=== PATIENT | female | born 1945 | race Caucasian/White ===

== ENCOUNTER 2018-11-16 06:27 | Day surgery (SDC) | payer OTHER ==
[2018-11-14 11:56] LABS: Absolute Lymphocytes (CBC) 1.7 K/uL (0.7-4.9); Basophils % 0.9 % (0-1.3); Hematocrit 43.8 % (36.0-45.0); Lymphocytes % 26.7 % (15.3-44.8); MPV 8.5 fL (7.6-11.3); RBC Red Blood Cell Count 4.78 M/uL (3.86-4.86)
[2018-11-14 12:09] LABS: Potassium 4.4 mmol/L (3.5-5.1)
--- OUTSIDE RECORDS SUMMARY | 2018-11-16 06:32 | XMS REPORT ---
:1945 Author Organization [employer] Care Team Providers Name Role Phone LopezTab Provider Role Unavailable Allergies, Adverse Reactions, Alerts Substance Reaction Event Type Bactrim Info Not Available Drug Allergy Problems Problem Type Condition Code Onset Dates Condition Status Assessment Pain, joint, shoulder, right M25.511 Active Problem Primary osteoarthritis of right M19.011 Active shoulder Assessment Primary osteoarthritis of right M19.011 Active shoulder Assessment Impingement syndrome of right M75.41 Active shoulder Assessment Sprain of right rotator cuff S43.421A Active capsule, initial encounter Medications Medication Code Code Instructions Start End Status Dosage System Date Date Plavix [facility] 58166968770 75 MG Orally October Active 1 tablet Once a day 2018 Metformin HCl [facility] 47720773796 1000 MG Oral Active TAKE 1 TABLET BY MOUTH TWICE A DAY Fenofibrate [facility] 52495805369 145 MG Oral Active TAKE 1 TABLET BY MOUTH EVERY DAY Losartan [facility] 40069939789 50 MG Oral Active TAKE 1 TABLET BY Potassium MOUTH EVERY DAY Escitalopram [facility] 10246086815 20 MG Oral Active TAKE 1 TABLET BY Oxalate MOUTH EVERY DAY. Jardiance [facility] 75427743883 25 MG Oral Active TAKE 1 TABLET BY MOUTH EVERY DAY Levothyroxine [facility] 13887112085 125 MCG Oral Active TAKE 1 TABLET BY Sodium MOUTH EVERY DAY Lansoprazole [facility] 30142534686 30 MG Oral Active TAKE 1 CAPSULE BY MOUTH EVERY DAY Victoza [facility] 07754006285 18 MG/3ML Active SUBCUTANEOUS Subcutaneous INJECT UNDER THE SKIN 1.8MG DAILY DIRECTED Aspir-81 ND 0 October Active not defined 2018 Metoprolol [facility] 31912310565 25 MG Oral Active TAKE 1 TABLET BY Tartrate MOUTH TWICE A DAY Atorvastatin [facility] 08366335202 40 MG Oral Active TAKE 1 TABLET BY Calcium MOUTH EVERY DAY Tresiba [facility] 94564550245 200 units/mL October Active As Directed Subcuteneous 2018 NovoLog [facility] 50497487854 100 UNIT/ML Active INJECTABLE Subcutaneous SUBCUTANEOUSLY 31 UNITS EVERY DAY AND NEEDED Results No Known Results Summary Purpose eClinicalWorks Submission
--- OUTSIDE RECORDS SUMMARY | 2018-11-16 06:32 | XMS REPORT ---
:1945 Author Organization [employer] Care Team Providers Name Role Phone Tab Lopez Provider Role Unavailable Allergies No Known Allergies Problems No Known Problems Medications No Known Medications Results No Known Results Summary Purpose [employer]ClinicalWorks Submission
--- OUTSIDE RECORDS SUMMARY | 2018-11-16 06:32 | XMS REPORT | Clinical Summary ---
:1945 Author Organization [facility] Address [address] [place] [address] Care Team Providers Name Role Phone Trae Rodriguez MD Primary Care Provider Allergies Active Allergy Reactions Severity Noted Date Comments Cephalexin Rash Low 01/08/2016 Codeine GI Intolerance 01/08/2016 Penicillins Rash Low 01/08/2016 Sulfamethoxazole-Trimethoprim Rash Low 01/08/2016 Medications Medication Sig Dispensed Refills Start End Status Date Date aspirin (ECOTRIN) Take 1 tablet(s) 0 Active 81 MG enteric every day by oral coated tablet route. levothyroxine Take 1 tablet every 0 Active (SYNTHROID, day by oral route. LEVOTHROID) 125 MCG tablet metFORMIN metformin 1,000 mg 0 Active (GLUCOPHAGE) 1000 tablet MG tablet escitalopram Take 20 mg by mouth 5 Active (LEXAPRO) 20 MG once daily. 7 tablet INSULIN Inject under the 0 Active SUBCUTANEOUS skin continuously. PUMP, NOVOLOG, 100 UNIT/ML INSULIN PUMP INFUSION (NovoLOG) empagliflozin Take by mouth. 0 Active (JARDIANCE) 25 mg tablet BIOTIN ORAL Take by mouth. 0 Active ASCORBIC ACID/VIT Take by mouth. 0 Active B12/ZINC (ZINC PLUS ORAL) liraglutide Inject 1.8 mg under 0 Active (VICTOZA) 0.6 the skin 2 (two) mg/0.1 mL (18 times a day. mg/3 mL) pen injector TRESIBA FLEXTOUCH INJECT UNDER THE 1 Active U-100 100 unit/mL SKIN 18 UNITS EVERY 8 (3 mL) insulin DAY pen metoprolol TAKE 1 TABLET BY 180 tablet 2 Active tartrate MOUTH TWICE A DAY 8 (LOPRESSOR) 25 mg tablet lansoprazole Take 1 capsule (30 90 capsule 3 Active (PREVACID) 30 MG mg total) by mouth 8 capsuleIndication daily. s: Coronary artery disease involving [place] heart with angina pectoris, unspecified vessel or lesion type (HCC) atorvastatin Take 1 tablet (40 mg 90 tablet 3 Active (LIPITOR) 40 MG total) by mouth 8 tabletIndications daily. : Coronary artery disease involving [place] heart without angina pectoris, unspecified vessel or lesion type fenofibrate fenofibrate 90 tablet 3 Active (TRICOR) 145 MG nanocrystallized 145 8 tablet mg tablet losartan (COZAAR) TAKE 1 TABLET BY 90 tablet 3 Active 50 MG tablet MOUTH EVERY DAY 9 clopidogrel TAKE 1 TABLET BY 90 tablet 3 Active (PLAVIX) 75 mg MOUTH EVERY DAY 9 tablet cycloSPORINE Administer 1 drop to 5.5 mL 11 Discontinued (RESTASIS both eyes every 12 7 018 MULTIDOSE) 0.05 % (twelve) hours. drops fenofibrate fenofibrate 90 tablet 3 Discontinued (TRICOR) 145 MG nanocrystallized 145 7 018 tablet mg tablet metoprolol Take 1 tablet (25 mg 180 tablet 2 Discontinued tartrate total) by mouth 2 8 018 (LOPRESSOR) 25 mg (two) times a day. tablet 1/2 tablet twice a day atorvastatin TAKE 1 TABLET BY 90 tablet 3 Discontinued (LIPITOR) 40 MG MOUTH EVERY DAY 8 018 tabletIndications : Coronary artery disease involving [place] heart without angina pectoris, unspecified vessel or lesion type losartan (COZAAR) Take 1 tablet (50 mg 90 tablet 3 Discontinued 50 MG tablet total) by mouth 8 019 daily. clopidogrel Take 1 tablet(s) 90 tablet 3 Discontinued (PLAVIX) 75 mg every day by oral 8 019 tablet route. lansoprazole TAKE 1 CAPSULE (30 90 capsule 3 Discontinued (PREVACID) 30 MG MG TOTAL) BY MOUTH 8 018 capsuleIndication DAILY. s: Coronary artery disease involving [place] heart with angina pectoris, unspecified vessel or lesion type (HCC) cycloSPORINE Administer 1 drop to 180 each 3 (RESTASIS) 0.05 % both eyes 2 (two) 8 019 ophthalmic times a day for 90 emulsion days. fenofibrate fenofibrate 90 tablet 3 Discontinued (TRICOR) 145 MG nanocrystallized 145 8 018 tablet mg tablet Active Problems Problem Noted Date Dry eye syndrome 12/17/2016 Last Assessment & Plan: Continue Restasis OU BID (only using qd). Glaucoma suspect 11/19/2016 Last Assessment & Plan: H/O C/D enlargement, but past testing WNL. IOP excellent. Transient cerebral ischemia 06/04/2016 Essential hypertension 06/04/2016 Coronary artery disease involving [place] coronary artery of [place] heart 06/04 without angina pectoris History of coronary artery stent placement 06/04/2016 Diabetes mellitus without complication 01/08/2016 Last Assessment & Plan: S/p dense PRP OU in past with Dr. Castro and now Dr Butterfield. Continues to see Dr. Butterfield. Refractive error 01/08/2016 Last Assessment & Plan: Large change in cyl OD. Given, but asked her to return for repeat check and keratometry and -OCT of IOL position, possibly tilted IOL OD. Left homonymous hemianopsia 01/08/2016 Last Assessment & Plan: Occipital stroke diagnosed by Dr. Garcia after abnormal VF test. In vision rehab with [facility]. Dislocated IOL (intraocular lens), posterior 01/08/2016 Last Assessment & Plan: -OCT does not show any IOL tilt OD. And updated MRx today is 1.25 D less cyl, now c/w kerotometry. So no IOL tilt OD. However, slight IOL tilt observed OS, but patient asymptomatic OS and no significa nt changes in refraction, so no additional w/u recommended. MRx updated. 1 year. Encounters Date Type Specialty Care Team Description 08/02/2018 Refill Cardiology Severo Parish MD Med Refill 03/18/2018 Refill Cardiology Katie Plascencia MA Med Refill 03/17/2018 Refill Cardiology Katie Plascencia MA Med Refill 03/08/2018 Refill Cardiology Katie Plascencia MA Med Refill 03/07/2018 Refill Cardiology Katie Plascencia MA Med Refill 02/20/2018 Refill Cardiology Severo Parish MD Med Refill 02/17/2018 Office Visit Ophthalmology Jase Louise MD Dry eye syndrome (Primary Dx) 02/17/2018 Refill Ophthalmology Jens Cassi after 11/15/2017 Family History Medical History Relation Name Comments Macular degeneration Brother Diabetes Father No Known Problems Maternal Aunt No Known Problems Maternal Grandfather No Known Problems Maternal Grandmother No Known Problems Maternal Uncle Cataracts Mother Diabetes Mother No Known Problems Paternal Aunt Cataracts Paternal Grandfather Diabetes Paternal Grandfather No Known Problems Paternal Grandmother No Known Problems Paternal Uncle Cancer Sister Diabetes Sister Amblyopia Neg Hx Aneurysm Neg Hx Blindness Neg Hx Fuchs' dystrophy Neg Hx Glaucoma Neg Hx Hypertension Neg Hx [place] Neg Hx Multiple sclerosis Neg Hx Ptosis Neg Hx Retinal detachment Neg Hx Strabismus Neg Hx Stroke Neg Hx Thyroid disease Neg Hx Relation Name Status Comments Brother Father Maternal Aunt Maternal Grandfather Maternal Grandmother Maternal Uncle Mother Paternal Aunt Paternal Grandfather Paternal Grandmother Paternal Uncle Sister Social History Tobacco Use Types Packs/Day Years Used Date Former Smoker Smokeless Tobacco: Never Used Alcohol Use Drinks/Week oz/Week Comments Yes Sex Assigned at Date Recorded Not on file Job Start Date Occupation Industry Not on file Not on file Not on file Travel History Travel Start Travel End No recent travel history available. Last Filed Vital Signs Not on file Plan of Treatment Date Type Specialty Care Team Description 02/17/2019 Office Visit Ophthalmology Jase Louise MD [address] [address] [phone] Health Maintenance Due Date Last Done Comments DIABETIC FOOT EXAM 12/11/1957 URINE MICROALBUMIN 12/11/1957 BREAST CANCER SCREENING 12/11/1997 COLONOSCOPY SCREENING 12/11/1997 SHINGLES VACCINES (#1) 12/11/1997 65+ PNEUMOCOCCAL VACCINE (1 of 2 - 12/11/2012 PCV13) INFLUENZA VACCINE 11/03/2018 DIABETIC RETINAL EYE EXAM 02/18/2020 02/17/2018, 02/17/2018, 02/17/2018, Additional history exists Results Not on fileafter 11/15/2017 Advance Directives Patient has advance care planning documents on file. For more information, please contact:Luis Hutchison[address] [place] [address]
[2018-11-16] MEDS ORDERED: NA CHLORIDE 0.9% 1,000 ML ONE (06:52)
[2018-11-16] MEDS ORDERED: PROPOFOL 200 MG/20 ML VIAL IV ONE (07:00)
[2018-11-16] MEDS ORDERED: FENTANYL CITR 100 MCG/2 ML ONE (07:01)
[2018-11-16] MEDS ORDERED: ONDANSETRON 4 MG/2 ML VIAL ONE (07:01)
[2018-11-16] MEDS ORDERED: LIDOCAINE 1% MPF 2 ML AMPULE ONE (07:02)
[2018-11-16] MEDS ORDERED: CLINDAMYCIN INJ 600 MG in NA CHLORIDE 0.9% 50 ML IV ONE (07:15)
[2018-11-16] MEDS ORDERED: BUPIVACAINE 0.5% PF 10 ML VIAL ONE (07:21)
[2018-11-16] MEDS ORDERED: NS 0.9% VIAL 10 ML ONE (07:21)
[2018-11-16] MEDS ORDERED: BACITRACIN 50000 UNIT VIAL ONE (07:21)
[2018-11-16] MEDS ORDERED: EPHEDRINE SULF 50 MG/ML VIAL ONE (08:05)
--- NOTE | 2018-11-16 09:26 | RAD REPORT ---
EXAM DESCRIPTION: RAD - Foot Left 3 View - 11/16/2018 9:21 am CLINICAL HISTORY: LT FOOT 5TH DIGIT COMPARISON: No comparisons FINDINGS: Fluoroscopy time 0.1 minutes.
== END 2018-11-16 10:25 | disposition home or self-care (01) ==
LOC: OR 06:27
PROVIDERS: ATTEND Podiatrist Foot & Ankle Surgery
PROC: 0QBP0ZZ Excision of Left Metatarsal, Open Approach (ICD-10-PCS; principal; 2018-11-16 07:30)
DX: M21.622 Bunionette of left foot (principal); E11.9 Type 2 diabetes mellitus without complications; I10 Essential (primary) hypertension; I25.10 Atherosclerotic heart disease of native coronary artery without angina pectoris; Z87.891 Personal history of nicotine dependence; Z86.73 Personal history of transient ischemic attack (TIA), and cerebral infarction without residual deficits; Z88.0 Allergy status to penicillin; Z88.1 Allergy status to other antibiotic agents; Z88.3 Allergy status to other anti-infective agents; Z88.6 Allergy status to analgesic agent; Z79.4 Long term (current) use of insulin; Z96.41 Presence of insulin pump (external) (internal); Z79.02 Long term (current) use of antithrombotics/antiplatelets; Z79.82 Long term (current) use of aspirin
CPT/HCPCS: 85025; 80048; 36415; 82962 ×2; 88305; 73630; 28110; J2704; J3010; J2001; J7030; J2405

== ENCOUNTER 2020-03-18 19:38 | Emergency (ER) | payer OTHER ==
--- OUTSIDE RECORDS SUMMARY | 2020-03-18 19:41 | XMS REPORT | Clinical Summary ---
:1945 Author Organization [facility] Address [address] [place] [address] Care Team Providers Name Role Phone Trae Rodriguez MD Primary Care Provider Allergies Active Allergy Reactions Severity Noted Date Comments Cephalexin Rash Low 01/08/2016 Codeine GI Intolerance High 01/08/2016 Penicillins Rash Low 01/08/2016 Sulfamethoxazole-Trimethoprim Rash Low 01/08/2016 Medications Medication Sig Dispensed Refills Start End Date Status Date levothyroxine Take 125 mcg 0 Act celeste (SYNTHROID, by mouth LEVOTHROID) 125 MCG every tablet morning. metFORMIN Take 1,000 mg 0 Active (GLUCOPHAGE) 1000 MG by mouth 2 tablet (two) times a day with meals. escitalopram Take 20 mg by 5 Act celeste (LEXAPRO) 20 MG mouth every 7 tablet morning. INSULIN SUBCUTANEOUS Inject under 0 Active PUMP, NOVOLOG, 100 the skin UNIT/ML INSULIN PUMP continuously. INFUSION (NovoLOG) Pt took it off 30 min ago empagliflozin Take 25 mg by 0 Ac tive (JARDIANCE) 25 mg mouth every tablet morning. biotin 10,000 mcg Take 1 0 Ac tive capsule capsule by mouth every evening. liraglutide Inject under 0 Activ e (VICTOZA) 0.6 mg/0.1 the skin. mL (18 mg/3 mL) pen Taking 0.6 injector mg/0.1 ml in the morning and 1.2 mg/0.1ml in evening TRESIBA FLEXTOUCH 12 Units 2 1 A ctive U-100 100 unit/mL (3 (two) times a 8 mL) insulin pen day. 12 units in the morning and 12 units in the evening multivit-min/iron/fo Take 1 tablet 0 Active lic/lutein by mouth (MULTIVITAMIN WOMEN every 50 PLUS ORAL) morning. docosahexaenoic Take 1,200 mg 0 Active acid/epa (FISH OIL by mouth. 1 ORAL) capsule in morning and 2 capsules in the evening cholecalciferol, Take 1,000 0 Ac tive vitamin D3, 1,000 Units by unit tablet mouth every other day. zinc 50 mg tablet Take 1 tablet 0 Active by mouth every morning. magnesium oxide 500 Take 1 tablet 0 Active mg capsule by mouth every morning. potassium gluconate Take 1 tablet 0 Active 595 mg (99 mg) by mouth tablet every evening. ascorbic acid, Take 1,000 mg 0 A ctive vitamin C, (VITAMIN by mouth C) 1000 MG tablet every morning. vitamin E 400 UNIT Take 400 0 A ctive capsule Units by mouth every evening. atorvastatin Take 40 mg by 0 Act celeste (LIPITOR) 40 mg mouth every tablet morning. lansoprazole Take 30 mg by 0 Act celeste (PREVACID) 30 MG mouth daily. capsule fenofibrate (TRICOR) Take 145 mg 0 Active 145 MG tablet by mouth daily. aspirin (ECOTRIN) 81 Take 1 tablet 90 tablet 3 05/16 Active MG enteric coated (81 mg total) 0 21 tablet by mouth every evening for 90 days. clopidogreL (PLAVIX) Take 1 tablet 90 tablet 3 05/16 Active 75 mg tablet (75 mg total) 0 21 by mouth daily for 90 days. losartan (COZAAR) Take 1 tablet 90 tablet 3 03/12/20 Active 100 MG tablet (100 mg 0 21 total) by mouth daily. metoprolol tartrate Take 1 tablet 180 tablet 3 03/12 Active (LOPRESSOR) 50 mg (50 mg total) 0 21 tablet by mouth 2 (two) times a day. aspirin (ECOTRIN) 81 Take 81 mg by 0 02/15 Discontinued MG enteric coated mouth every 20 (Reorder) tablet evening. ASCORBIC ACID/VIT Take by 0 01/29/20 Di scontinued B12/ZINC (ZINC PLUS mouth. 20 ORAL) lansoprazole Take 1 90 capsule 3 04/25/19 Discon tinued (PREVACID) 30 MG capsule (30 8 20 capsuleIndications: mg total) by Coronary artery mouth daily. disease involving [place] heart with angina pectoris, unspecified vessel or lesion type (HCC) atorvastatin Take 1 tablet 90 tablet 3 04/24/19 Dis continued (LIPITOR) 40 MG (40 mg total) 8 20 tabletIndications: by mouth Coronary artery daily. disease involving [place] heart without angina pectoris, unspecified vessel or lesion type losartan (COZAAR) 50 TAKE 1 TABLET 90 tablet 3 08/14 Discontinued MG tablet BY MOUTH 9 20 (Reorder) EVERY DAY clopidogrel (PLAVIX) TAKE 1 TABLET 90 tablet 3 08/14 Discontinued 75 mg tablet BY MOUTH 9 20 (Reorde r) EVERY DAY metoprolol tartrate TAKE 1 TABLET 180 tablet 2 09/03 Discontinued (LOPRESSOR) 25 mg BY MOUTH 9 20 (R eorder) tablet TWICE A DAY fenofibrate (TRICOR) TAKE 1 TABLET 90 tablet 3 01/30 Discontinued 145 MG tablet BY MOUTH 9 20 EVERY DAY atorvastatin TAKE 1 TABLET 90 tablet 3 01/31/20 Dis continued (LIPITOR) 40 MG BY MOUTH 0 20 tabletIndications: EVERY DAY Coronary artery disease involving [place] heart without angina pectoris, unspecified vessel or lesion type lansoprazole TAKE 1 90 capsule 3 01/31/20 Discon tinued (PREVACID) 30 MG CAPSULE BY 0 20 capsuleIndications: MOUTH EVERY Coronary artery DAY disease involving [place] heart with angina pectoris, unspecified vessel or lesion type (HCC) losartan (COZAAR) 50 Take 1 tablet 90 tablet 0 11/05 Discontinued MG tablet (50 mg total) 0 20 by mouth daily. clopidogreL (PLAVIX) TAKE 1 TABLET 90 tablet 0 11/05 Discontinued 75 mg tablet BY MOUTH 0 20 EVERY DAY metoprolol tartrate Take 1 tablet 180 tablet 2 02/15 Discontinued (LOPRESSOR) 25 mg (25 mg total) 0 20 (Stop Taking at tablet by mouth 2 Discharge ) (two) times a day. clopidogreL (PLAVIX) TAKE 1 TABLET 90 tablet 0 01/28 Discontinued 75 mg tablet BY MOUTH 0 20 EVERY DAY losartan (COZAAR) 50 TAKE 1 TABLET 90 tablet 0 01/28 Discontinued MG tablet BY MOUTH 0 20 EVERY DAY clopidogreL (PLAVIX) TAKE 1 TABLET 90 tablet 0 01/30 Discontinued 75 mg tablet BY MOUTH 0 20 EVERY DAY losartan (COZAAR) 50 TAKE 1 TABLET 90 tablet 0 01/30 Discontinued MG tablet BY MOUTH 0 20 EVERY DAY clopidogreL (PLAVIX) Take 75 mg by 0 02/15 Discontinued 75 mg tablet mouth daily. 20 (Reo rder) losartan (COZAAR) 50 Take 50 mg by 0 02/15 Discontinued MG tablet mouth daily. 20 (Stop T aking at Discharge) Active Problems Problem Noted Date PAD (peripheral artery disease) 03/12/2020 Carotid artery disease 03/12/2020 Coronary artery disease involving [place] coronary nadine ry 02/05/2020 Overview: Added automatically from request for letty garza [id number] Angina pectoris 01/23/2020 SOB (shortness of breath) 12/27/2018 Dry eye syndrome of both eyes 12/17/2016 Last Assessment & Plan: BLL punctal atresia. BUL large plugs intact. D/C Restasis now, didn't feel it helped much before, and may not need now with plugs. No change to MRx given last visit. STabl e, corrects better OS to 20/20 like OD. Return PRN. Optic cupping of both eyes 11/19/2016 Last Assessment & Plan: C/D increased OU, past testing WNL, IOP excellent. Transient cerebral ischemia 06/04/2016 Essential hypertension 06/04/2016 CAD in [place] artery 06/04/2016 History of coronary artery stent placement 06/04/2016 Diabetes mellitus without complication 01/08/2016 Last Assessment & Plan: S/p dense PRP OU in past with Dr. Castro and now Dr Butterfield. Continues to see Dr. Butterfield. Left homonymous hemianopsia 01/08/2016 Last Assessment & Plan: Occipital stroke diagnosed by Dr. Garcia after abnormal VF test. Past vision rehab with [facility]. Reminded patient of this diagnosis and i mperfections in her vision as a result of this, she stated "this is the first time someone has told me about the stroke". REminded her that she knew about this in the past and underwent vision rehab, wh ich then she remembered. Dislocated IOL (intraocular lens), posterior 6 Last Assessment & Plan: -OCT does not show any IOL tilt OD. And updated MRx today is 1.25 D less cyl, now c/w kerotometry. So no IOL tilt OD. However, slight IOL tilt observed OS, but patient asymptomatic OS and no significa nt changes in refraction, so no addition al w/u recommended. MRx updated. 1 year. Encounters Date Type Specialty Care Team Description 03/14/2020 Travel 03/12/2020 Office Visit Cardiology Delonte Cain Essential hyper tension (Primary Dx); MD Rosibel CAD in [place] a rtery; PAD (peripheral artery disease) ([facility]); Carotid artery disease, unspecified laterality, unspecified type (HCC) 03/12/2020 Travel 02/19/2020 Travel 02/14/2020 Surgery Procedural Delonte Cain Cv unlisted cat h lab Cardiology MD Rosibel procedure 02/14/2020 - Hospital Encounter General Internal Delonte Cain Coron yaakov artery 02/16/2020 Medicine MD Rosibel disease involvi ng [place] coronary artery, angina presence unspec ified, unspecified whe ther [place] or trans planted heart 02/14/2020 Travel 02/09/2020 Lab Lab Delonte Cain Exposure to BOOM S-associated coronavirus; MD Rosibel CAD in [place] a rtery; SOB (shortness of breath); Angina pectoris (HCC) 02/09/2020 Travel 02/06/2020 Travel 02/05/2020 Orders Only Cardiology Jerman Deshpande MA Exposure to SA RS-associated coronavirus (Primary Dx); CAD in [place] a rtery; SOB (shortness of breath); Angina pectoris (HCC) 02/05/2020 Telephone Cardiology Jerman Deshpande MA Appointment (R Carotid stent) 01/31/2020 Surgery Procedural Delonte Cain Selective coron yaakov Cardiology MD Rosibel angiography [[id number] (CPT)] 01/31/2020 Hospital Encounter Procedural Delonte Cain CAD in na tive artery; Cardiology MD Rosibel Angina pectoris (HCC); SOB (shortness of breath) 01/31/2020 Travel 01/29/2020 Documentation Medical Records Provider, Unknown 01/29/2020 Refill Cardiology Delonte Cain Med Refill MD Rosibel 01/26/2020 Lab Lab Delonte Cain Atherosclerotic heart disease of [place] coronary artery without angina pectoris (Primary Dx); MD Rosibel Exposure to BOOM S-associated coronavirus; Angina pectoris , unspecified (HCC); Shortness of br eath 01/26/2020 Travel 01/24/2020 Travel 01/23/2020 Office Visit Cardiology Delonte Cain CAD in [place] a rtery (Primary Dx); MD Rosibel Angina pectoris (HCC); SOB (shortness of breath); History of leila nary artery stent placement; Exposure to BOOM S-associated coronavirus 01/23/2020 Travel 01/23/2020 Orders Only Cardiology Jerman Deshpande MA CAD in [place] artery (Primary Dx); Angina pectoris (HCC); SOB (shortness of breath) 01/02/2020 Travel 12/25/2019 Travel 11/06/2019 Refill Cardiology Delonte Cain Refill MD Rosibel 09/04/2019 Refill Cardiology Temo Med Refill KatieCHARMAINE de la garza 08/15/2019 Orders Only Cardiology Jerman Deshpande MA 04/25/2019 Refill Cardiology Delonte Cain Refill MD Rosibel 04/24/2019 Refill Cardiology Delonte Cain Refill MD Rosibel 03/25/2019 Refill Cardiology Delonte Cain Med Refill MD Rosibel after 03/18/2019 Surgical History Surgery Date Site/Laterality Comments STENT cardiac RETINAL LASER PROCEDURE ROTATOR CUFF REPAIR FOOT SURGERY CATARACT EXTRACTION Bilateral APPENDECTOMY CARDIAC CATHETERIZATION 01/31/2020 N/A Procedur e: Selective coronary angiography; Stack rgeon: Delonte Cain MD; Location: [facility] WT Supervisor Ride Assembly Invasiv e Location; Service: Cardiol ogy; Laterality: N/A; CARDIAC CATHETERIZATION 01/31/2020 N/A Procedur e: Angiogram carotid bilateral; Surg page: Delonte Cain MD; Locatio n: [facility] WT Supervisor Ride Assembly Invasive Locatio n; Service: Cardiology; Lat erality: N/A; CARDIAC CATHETERIZATION 02/14/2020 N/A Procedur e: 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 CARDIAC CATHETERIZATION 02/14/2020 N/A Procedur e: Carotid artery stent w embolic protection; Surgeon: Delonte Cain MD; Location: [facility] [address] Supervisor Ride Assembly Invasive Location; Service: Cardiology; Laterality: N/A; Right Carotid Medical devices from this surgery are in the Implants section. Medical History Medical History Date Comments Hypertension Diabetes mellitus (HCC) CAD (coronary artery disease) Hypothyroid Dry eyes Diabetic retinopathy (HCC) Posterior capsule opacification 09/25/2015 Family History Medical History Relation Name Comments [...] Used Alcohol Use Drinks/Week oz/Week Comments Yes occasionally Sex Assigned at Date Recorded Not on file Job Start Date Occupation Industry Not on file Not on file Not on file COVID-19 Exposure Response Date Recorded In the last month, have you been in contact with No / Unsure 03/14/2020 3:24 PM SPRAY MACHINE TENDER someone who was confirmed or suspected to have Coronavirus / COVID-19? Last Filed Vital Signs Vital Sign Reading Time Taken Comments Blood Pressure 230/97 03/12/2020 11:01 AM SPRAY MACHINE TENDER Pulse 82 03/12/2020 11:01 AM SPRAY MACHINE TENDER Temperature 36.7 C (98 F) 02/16/2020 12:00 PM SPRAY MACHINE TENDER Respiratory Rate 16 02/16/2020 12:00 PM SPRAY MACHINE TENDER Oxygen Saturation 98% 02/16/2020 12:00 PM SPRAY MACHINE TENDER Inhaled Oxygen Concentration - - Weight 69.4 kg (153 lb) 03/12/2020 11:01 AM SPRAY MACHINE TENDER Height 172.7 cm (5' 8") 03/12/2020 11:01 AM SPRAY MACHINE TENDER Body Mass Index 23.26 03/12/2020 11:01 AM SPRAY MACHINE TENDER Plan of Treatment Health Maintenance Due Date Last Done Comments DIABETIC FOOT EXAM 12/11/1955 URINE MICROALBUMIN 12/11/1957 COVID-19 VACCINE (#1) 1963 BREAST CANCER SCREENING 12/11/1997 COLONOSCOPY SCREENING 12/11/1997 SHINGLES VACCINES (#1) 12/11/1997 65+ PNEUMOCOCCAL VACCINE (1 of 1 - 12/11/2012 PPSV23) INFLUENZA VACCINE 11/04/2019 DIABETES: RETINAL EYE EXAM 03/15/2021 03/15/2019, 9, 03/15/2019, Additional history exists Implants Implanted Type Area Senior Qa Analyst Device Shelf Model / Identifier Expiration Serial / Date Lot Stent Crtd Xact Slf-Xpndbl Tprd Solitario 7-9x40mm - [id number] Periph eral or N/A: [employer]SON [employer] 08/02/2022 [id number] / Implanted: Qty: 1 on 02/14/2020 at [facility] Biliary Stents N/A DEVICES / [id number] System Clsr Sut Meditd 6fr Perclose Proglide - [id number] Surgic al N/A: [employer]SON [employer]ASCULAR 11/02/2021 [id number] / Implanted: Qty: 1 on 02/14/2020 at [facility] Implants; N/A DE VICES / Expanders; [id number] Extenders; Surgical Wires Procedures Procedure Name Priority Date/Time Associated Diagnosis Comme nts US RENAL DOPPLER Routine 03/15/2020 11:53 Essential Results for this AM SPRAY MACHINE TENDER hypertension procedure are in CAD in [place] ar mary the results PAD (peripheral section. artery disease) (HCC) Carotid artery disease, unspecified laterality, unspecified type (HCC) POC GLUCOSE Routine 02/16/2020 12:01 Results for this PM SPRAY MACHINE TENDER procedure are i n the results section. POC GLUCOSE Routine 02/16/2020 9:34 Results for this AM SPRAY MACHINE TENDER procedure are i n the results section. HC COMPLETE BLD COUNT Routine 02/16/2020 5:50 Re sults for this W/AUTO DIFF AM [employer]AY MACHINE TENDER procedure are i n the results section. ESTIMATED GFR Routine 02/16/2020 4:00 Results fo r this AM SPRAY MACHINE TENDER procedure are i n the results section. PHOSPHORUS LEVEL Routine 02/16/2020 4:00 Results for this AM SPRAY MACHINE TENDER procedure are i n the results section. MAGNESIUM LEVEL Routine 02/16/2020 4:00 Results for this AM SPRAY MACHINE TENDER procedure are i n the results section. BASIC METABOLIC PANEL Routine 02/16/2020 4:00 Re sults for this AM SPRAY MACHINE TENDER procedure are i n the results section. POC GLUCOSE Routine 02/15/2020 9:06 Results for this PM SPRAY MACHINE TENDER procedure are i n the results section. POC GLUCOSE Routine 02/15/2020 5:01 Results for this PM SPRAY MACHINE TENDER procedure are i n the results section. POC GLUCOSE Routine 02/15/2020 12:19 Results for this PM SPRAY MACHINE TENDER procedure are i n the results section. POC GLUCOSE Routine 02/15/2020 7:34 Results for this AM SPRAY MACHINE TENDER procedure are i n the results section. LIPID PANEL Routine 02/15/2020 5:40 Results for this AM SPRAY MACHINE TENDER procedure are i n the results section. ESTIMATED GFR Routine 02/15/2020 5:40 Results fo r this AM SPRAY MACHINE TENDER procedure are i n the results section. BASIC METABOLIC PANEL Routine 02/15/2020 5:40 Re sults for this AM SPRAY MACHINE TENDER procedure are i n the results section. CBC HEMOGRAM Routine 02/15/2020 5:40 Results for this AM SPRAY MACHINE TENDER procedure are i n the results section. HEMOGLOBIN A1C Routine 02/15/2020 5:40 Results f or this AM SPRAY MACHINE TENDER procedure are i n the results section. POC GLUCOSE Routine 02/14/2020 8:53 Results for this PM SPRAY MACHINE TENDER procedure are i n the results section. POC GLUCOSE Routine 02/14/2020 5:05 Results for this PM SPRAY MACHINE TENDER procedure are i n the results section. POC GLUCOSE Routine 02/14/2020 2:20 Results for this PM SPRAY MACHINE TENDER procedure are i n the results section. POC GLUCOSE Routine 02/14/2020 1:03 Results for this PM SPRAY MACHINE TENDER procedure are i n the results section. CV CAROTID ARTERY Routine 02/14/2020 12:34 Coronary artery Res ults for this STENT W EMBOLIC PM SPRAY MACHINE TENDER disease involving procedu re are in PROTECTION [place] coronary the results artery, angina section. presence unspecified, unspecified whether [place] or transplanted heart CV UNLISTED DIRECTOR OPERATIONS BROADCAST Routine 02/14/2020 12:34 Coronary artery Results for this PROCEDURE PM SPRAY MACHINE TENDER disease involving procedure are in [place] coronary the results artery, angina section. presence unspecified, unspecified whether [place] or transplanted heart POC GLUCOSE Routine 02/14/2020 12:01 Results for this PM SPRAY MACHINE TENDER procedure are i n the results section. ACTIVATED CLOTTING Routine 02/14/2020 11:58 Resul ts for this TIME AM SPRAY MACHINE TENDER procedure are i n the results section. POC GLUCOSE Routine 02/14/2020 11:08 Results for this AM SPRAY MACHINE TENDER procedure are i n the results section. POC GLUCOSE Routine 02/14/2020 10:09 Results for this AM SPRAY MACHINE TENDER procedure are i n the results section. POC GLUCOSE Routine 02/14/2020 9:05 Results for this AM SPRAY MACHINE TENDER procedure are i n the results section. ECG PRE/POST OP Routine 02/14/2020 8:45 Results for this AM SPRAY MACHINE TENDER procedure are i n the results section. POC GLUCOSE Routine 02/14/2020 8:27 Results for this AM SPRAY MACHINE TENDER procedure are i n the results section. ESTIMATED GFR Routine 02/09/2020 10:15 Results fo r this AM SPRAY MACHINE TENDER procedure are i n the results section. HC COMPLETE BLD COUNT Routine 02/09/2020 10:15 Exposure to Re sults for this W/AUTO DIFF AM SPRAY MACHINE TENDER SARS-associated procedure ar e in coronavirus the results CAD in [place] ar mary section. SOB (shortness of breath) Angina pectoris (HCC) COMPREHENSIVE Routine 02/09/2020 10:15 Exposure to Results fo r this METABOLIC PANEL AM SPRAY MACHINE TENDER SARS-associated procedure are in coronavirus the results CAD in [place] ar mary section. SOB (shortness of breath) Angina pectoris (HCC) PROTHROMBIN TIME WITH Routine 02/09/2020 10:15 Exposure to Re sults for this INR AM SPRAY MACHINE TENDER SARS-associated procedure ar e in coronavirus the results CAD in [place] ar mary section. SOB (shortness of breath) Angina pectoris (HCC) COVID-19 QUALITATIVE Routine 02/09/2020 10:12 Exposure to Res ults for this PCR AM SPRAY MACHINE TENDER SARS-associated procedure ar e in coronavirus the results CAD in [place] ar mary section. SOB (shortness of breath) Angina pectoris (HCC) POC GLUCOSE Routine 01/31/2020 11:55 Results for this AM CDT procedure are i n the results section. CV ANGIOGRAM CAROTID Routine 01/31/2020 11:25 CAD in gavino celeste artery Results for this BILATERAL AM CDT Angina pectoris procedure ar e in (HCC) the results SOB (shortness of section. breath) CV SELECTIVE CORONARY Routine 01/31/2020 11:25 CAD in na tive artery Results for this ANGIOGRAPHY AM CDT Angina pectoris procedure ar e in (HCC) the results SOB (shortness of section. breath) POC GLUCOSE Routine 01/31/2020 10:37 Results for this AM CDT procedure are i n the results section. POC GLUCOSE Routine 01/31/2020 9:10 Results for this AM CDT procedure are i n the results section. COVID-19 QUALITATIVE Routine 01/26/2020 10:20 Exposure to Res ults for this PCR AM CDT SARS-associated procedure ar e in coronavirus the results section. PROTHROMBIN TIME WITH Routine 01/26/2020 10:14 CAD in na tive artery Results for this INR AM CDT Angina pectoris procedure ar e in ([facility]) the results SOB (shortness of section. breath) History of coronary artery stent placement COMPREHENSIVE Routine 01/26/2020 10:14 CAD in [place] a rtery Results for this METABOLIC PANEL AM CDT Angina pectoris procedure are in ([facility]) the results SOB (shortness of section. breath) History of coronary artery stent placement CBC WITH PLATELET AND Routine 01/26/2020 10:14 CAD in na tive artery Results for this DIFFERENTIAL AM CDT Angina pectoris procedure ar e in ([facility]) the results SOB (shortness of section. breath) History of coronary artery stent placement US CAROTID DUPLEX Routine 01/23/2020 3:01 CAD in [place] artery Results for this BILATERAL PM CDT Angina pectoris procedure ar e in ([facility]) the results SOB (shortness of section. breath) History of coronary artery stent placement ECG 12-LEAD Routine 01/23/2020 1:15 CAD in [place] artery Res ults for this PM CDT procedure are i n the results section. after 03/18/2019 Results US Renal Doppler (03/15/2020 11:53 AM SPRAY MACHINE TENDER) Specimen Narrative Performed At EXAMINATION: US RENAL DOPPLER HM RADIANT CLINICAL HISTORY: I10 Essential (primary) hypertensi on, I25.10 Atherosclerotic heart disease of [place] coronary arter y without angina pectoris, HTN CAD TECHNIQUE: Examination includes a full duplex Doppler scan of the renal vessels (real-time B mode grayscale, Doppler spectral analysis, and Doppler color flow imaging). COMPARISON: None. FINDINGS: Right renal arterial waveforms demonstrate normal sys tolic upstrokes and good end diastolic flow. The right renal vein is patent. The resistive index measures 0.73-0.84. Left renal arterial waveforms demonstrate normal systo lic upstrokes and good end diastolic flow. The left renal vein is patent . The resistive index measures 0.73-0.82. IMPRESSION: Normal renal Doppler ultrasound examina tion. [facility]-[id number] Procedure Note Hm Interface, Radiology Results Incoming - 03/15/2020 12:02 PM SPRAY MACHINE TENDER EXAMINATION: US RENAL DOPPLER CLINICAL HISTORY: I10 Essential (primar y) hypertension, I25.10 Atherosclerotic heart disease of [place] coronary artery without angina pectoris, HTN CAD TECHNIQUE: Examination includes a full d uplex Doppler scan of the renal vessels (real-time B mode grayscale, Doppler spectral analysis, and Doppler color flow imaging). COMPARISON: None. FINDINGS: Right renal arterial waveforms demonstr ate normal systolic upstrokes and good end diastolic flow. The right renal vein is patent. The resistive index measures 0.73-0.84. Left renal arterial waveforms demonstrat e normal systolic upstrokes and good end diastolic flow. The left renal vein is patent. The resistive index measures 0.73-0.82. IMPRESSION: Normal renal Doppler ultrasound examina tion. [facility]-[id number] Performing Organization Address City/[facility] Code Phon e Number [facility] [address] [place] [id number] POC glucose (02/16/2020 12:01 PM SPRAY MACHINE TENDER)Only the most recent of18 resultswithin the time period is included. Pathologist [facility] nature POC glucose 116 (H) 65 - 99 mg/dL [facility] Comment: HOSPITAL Surgical Aide Name: Lux Mena Device ID: [id number] Chartable: [facility] Notified RN Specimen Blood Performing Organization Address City/[facility]/ZIP [facility] Phon e Number [facility] DEPARTMENT OF PATHOLOGY AND [address] [place] [address] [phone] GENOMIC MEDICINE [address] [address] CBC with platelet and differential (02/16/2020 5:50 AM SPRAY MACHINE TENDER)Only the most recent of3 resultswithin the time period is included. WBC 6.24 4.50 - 11.00 [facility] RBC 3.65 (L) 4.20 - 5.50 [facility] [facility] HGB 11.1 (L) 12.0 - 16.0 [facility] g/dL [facility] HCT 34.5 (L) 37.0 - 47.0 % [facility] MCV 94.5 82.0 - 100.0 [facility] MCH 30.4 27.0 - 34.0 pg [facility] MCHC 32.2 31.0 - 37.0 [facility] g/dL HOSPITAL RDW - SD 47.8 37.0 - 55.0 fL [facility] MPV 10.0 8.8 - 13.2 fL [facility] Platelet count 170 150 - 400 k/uL [facility] Nucleated RBC 0.00 /100 WBC [facility] Neutrophils 58.2 39.0 - 69.0 % [facility] Lymphocytes 25.0 25.0 - 45.0 % [facility] Monocytes 8.8 0.0 - 10.0 % [facility] Eosinophils 7.2 (H) 0.0 - 5.0 % [facility] Basophils 0.6 0.0 - 1.0 % [facility] Immature granulocytes 0.2Comment: 0.0 - 1.0 % [facility] "Immature HOSPITAL granulocytes" (promyelocytes , myelocytes, metamyelocytes ) Specimen Plasma Performing Organization Address City/[facility] [place] Phon e Number [facility] DEPARTMENT OF PATHOLOGY AND [address] [place] [address] [address] Estimated GFR (02/16/2020 4:00 AM SPRAY MACHINE TENDER)Only the most recent of3 resultswithin the time period is included. Pathologist [facility] Estimated GFR 46 (A) mL/min/1.73 [facility] Comment: m2 HOSPITAL Catergory Units Interpretation G1 >=90 Normal or high G2 60-89 Mildly decreased G3a 45-59 Mildly to moderately decreas ed G3b 30-44 Moderately to severely decre ased G4 15-29 Severely decreased G5 <15 Kidney failure The eGFR was calculated using the Chronic Kidney Disea se Epidemiology Collaboration (CKD-EPI) equation. Interpretation is based on recommendations of the National Kidney Foundation-Kidney Disease Outcomes Edward lity Initiative (NKF-KDOQI) published in 2014. Specimen Plasma Performing Organization Address City/State/[facility] [place] Phon e Number [facility] DEPARTMENT OF PATHOLOGY AND [address] [place] [address] [phone] [address] Phosphorus level (02/16/2020 4:00 AM SPRAY MACHINE TENDER) Pathologist Sig [facility] Phosphorus 3.1 2.4 - 4.5 mg/dL [facility] L Specimen Plasma Performing Organization Address City/[facility] [place] Phon e Number [facility] DEPARTMENT OF PATHOLOGY AND [address] [place] [address] [phone] [address] Magnesium level (02/16/2020 4:00 AM SPRAY MACHINE TENDER) Pathologist Sig [facility] Magnesium 2.3 1.6 - 2.4 mg/dL [facility] L Specimen Plasma Performing Organization Address City/[facility] [place] Phon e Number [facility] DEPARTMENT OF PATHOLOGY AND [address] [place] [address] [phone] [address] Basic metabolic panel (02/16/2020 4:00 AM SPRAY MACHINE TENDER)Only the most recent of2 results within the time period is included. Pathologist Sig [facility] Sodium 138 135 - 148 mEq/L [facility] Potassium 4.3 3.5 - 5.0 mEq/L [facility] Chloride 108 98 - 112 mEq/L [facility] CO2 23 (L) 24 - 31 mEq/L [facility] Anion gap 7@ANIO 7 - 15 mEq/L [facility] BUN 31 (H) 8 - 23 mg/dL [facility] Creatinine 1.17 (H) 0.50 - 0.90 mg/dL [facility] Glucose 97 65 - 99 mg/dL [facility] Calcium 8.7 (L) 8.8 - 10.2 mg/dL [facility] Specimen Plasma Performing Organization Address [facility] [place] Phon e Number [facility] DEPARTMENT OF PATHOLOGY AND [address] [place] [address] [phone] [address] CBC hemogram (02/15/2020 5:40 AM SPRAY MACHINE TENDER) Pathologist Sig nature WBC 8.80 4.50 - 11.00 k/uL [facility] RBC 4.05 (L) 4.20 - 5.50 m/uL [facility] HGB 12.1 12.0 - 16.0 g/dL [facility] HCT 38.5 37.0 - 47.0 % [facility] MCV 95.1 82.0 - 100.0 fL [facility] MCH 29.9 27.0 - 34.0 pg [facility] MCHC 31.4 31.0 - 37.0 g/dL [facility] RDW - SD 49.0 37.0 - 55.0 [facility] MPV 10.0 8.8 - 13.2 [facility] Platelet count 208 150 - 400 k/uL [facility] Nucleated RBC 0.00 /100 WBC [facility] Specimen Plasma Performing Organization Address City/[facility] [place] Phon e Number [facility] DEPARTMENT OF PATHOLOGY AND [address] [place] [address] [phone] [address] Hemoglobin A1c (02/15/2020 5:40 AM SPRAY MACHINE TENDER) Hemoglobin A1C 7.2 (H) 4.0 - 5.6 % [facility] Comment: HOSPITAL HbA1c cutoffs for diagnosing diabetes: 4.0% - 5.6% = normal 5.7% - 6.4% = increased risk for diabetes (prediabetes )9 >=6.5% = diabetes9 Goals for glycemic control (ADA 2016) < 7.0% Target for non adults with diabetes. More or less stringent targets may be appropriate for individual patients. <7.5% Target for Children and adolescents with type 1 diabetes. Specimen Blood Performing Organization Address City/State/[facility] [place] Phon e Number [facility] DEPARTMENT OF PATHOLOGY AND [address] [place] [address] [phone] [address] Lipid panel (02/15/2020 5:40 AM SPRAY MACHINE TENDER) Cholesterol 108 <200 mg/dL [facility] Triglycerides 98 <150 mg/dL [facility] HDL cholesterol 34 (L) >40 mg/dL [facility] LDL cholesterol 59Comment: Result <100 mg/dL YOLYN obtained by direct [facility] LDL measurement [facility] Lipid panel [facility] interpretation Comment: [facility] Total Cholesterol (mg/dL) HOSPIT AL <200 Desirable 200-239 Borderline-high >=240 High Triglycerides (mg/dL) <150 Normal 150-199 Borderline-high 200-499 High >=500 Very high HDL Cholesterol (mg/dL) <40 Low (male) <40 Low (female) LDL Cholesterol (mg/dL) <100 Optimal 100-129 Near or above optimal 130-159 Borderline-high 160-189 High >=190 Very high Risk Catergories that modify LDL goals. Risk Catergories LDL goal (mg/d L) CHD and CHD risk equivalent <100 (10-year risk >20%) Multiple (2+) risk factors <130 (10-year risk =<20%) 0-1 risk factors <160 (<10-year risk) Defining levels of lipids in metabolic syndrome Triglycerides >=150 mg/dL HDL Cholesterol Men <40 mg /dL Women <40 mg/ dL Non-HDL cholesterol is a second target for therapy in persons with high triglycerides (>=200 mg/dL) Specimen Plasma Performing Organization Address City/State/[facility] Code Phon e Number [facility] DEPARTMENT OF PATHOLOGY AND [address] [place], [place] [address] GENOMIC MEDICINE [facility] [address] [place] [address] Cv invasive peripheral vascular procedure (02/14/2020 12:34 PM SPRAY MACHINE TENDER)Only the most recent of2 resultswithin the time period is included. Specimen Narrative Performed At This result has an attachment that is no t available. PREOPERATIVE DIAGNOSIS SYNGO 1. Right Carotid artery stenosis POSTOPERATIVE DIAGNOSIS 1. Right internal carotid artery stenosis PROCEDURES PERFORMED 1. Right carotid angiography 2. SILVER MINER BLASTING and stenting of right internal carotid artery with distal embolic protection device placement ENTERTAINMENT REPORTER Delonte Cain MD, Web Knitter VIDEO GAME REPAIR TECHNICIAN Leonard Shannon MD Interventional Aluminum Can Collector ANESTHESIA USED Local 2% lidocaine, Conscious Sedation DESCRIPTION OF PROCEDURE The procedure was described to the patient including b enefits, risks, and alternatives to the procedure. The patient confirmed understanding and signed the informed consent. Patient was prepped and draped in sterile fashion. Conscious sedation provided to patient throug hout procedure with appropriate monitoring. The right common femoral artery (LAMP STACK DEVELOPER) was palpated a nd the region above the artery was anesthetized with 2% local lidocaine. Using micropunctureneedle, arterial access was obtained in t he right LAMP STACK DEVELOPER and 6 sheath was placed in the right LAMP STACK DEVELOPER. We then advanced a 6 Fr diagnostic catheter over the whooley wire in the right CCA. The whooley wire was advanced into the right ECA. Multiple angiographi c views were obtained showing severe 90% stenosis of the right internal ca rotid artery. Cerebral angiography was obtained in multiple views pr ior to beginning the procedure. The shuttle sheath was then advanced in the distal CCA over the Wholey wire. A filter wire was inserted and passed across the lesio n without much difficulty. The embolic protection device was deploy ed in the distal right internal carotid artery (Emboshield 4-7 mm). M easurements were obtained and a 7-9x40 XACT tapered self expanding sten t was selected. The stent passed without difficulty and did not require pr e-dilation. The stent was successfully deployed and post-dilated with 6.5x20 Viatrac peripheral balloon. Angiography showed a well deploy ed stent with no evidence of dissection. The embolic protection filte r was then removed and repeat cerebral angiography showed no change from the pre-procedure angiograms. Post-neurologic assessment showed no new defects and t he patient was transferred to recovery in stable condition. HEMOSTASIS: proglide suture deployed DISPOSITION: Return patient to nursing unit and monito r for groin complications. EBL: <30 mL CONDITION: Stable COMPLICATIONS: None SPECIMENS: None Leonard Shannon MD Interventional Aluminum Can Collector Scientologist [facility] 02/14/2020 Performing Organization Address City/State/[facility] Code Phon e Number [facility] [address] [place] [address], collaborating supervising physician procedure (02/14/2020 12:34 PM SPRAY MACHINE TENDER) Specimen Narrative Performed At This result has an attachment that is no t available. PREOPERATIVE DIAGNOSIS HM SYNGO 1. Right Carotid artery stenosis POSTOPERATIVE DIAGNOSIS 1. Right internal carotid artery stenosis PROCEDURES PERFORMED 1. Right carotid angiography 2. SILVER MINER BLASTING and stenting of right internal carotid artery with distal embolic protection device placement ENTERTAINMENT REPORTER Delonte Cain MD, Web Knitter VIDEO GAME REPAIR TECHNICIAN Leonard Shannon MD Interventional Aluminum Can Collector ANESTHESIA USED Local 2% lidocaine, Conscious Sedation DESCRIPTION OF PROCEDURE The procedure was described to the patient including b enefits, risks, and alternatives to the procedure. The patient confirmed understanding and signed the informed consent. Patient was prepped and draped in sterile fashion. Conscious sedation provided to patient throug hout procedure with appropriate monitoring. The right common femoral artery (LAMP STACK DEVELOPER) was palpated a nd the region above the artery was anesthetized with 2% local lidocaine. Using micropunctureneedle, arterial access was obtained in t he right LAMP STACK DEVELOPER and 6 sheath was placed in the right LAMP STACK DEVELOPER. We then advanced a 6 Fr diagnostic catheter over the whooley wire in the right CCA. The whooley wire was advanced into the right ECA. Multiple angiographi c views were obtained showing severe 90% stenosis of the right internal ca rotid artery. Cerebral angiography was obtained in multiple views pr ior to beginning the procedure. The shuttle sheath was then advanced in the distal CCA over the Wholey wire. A filter wire was inserted and passed across the lesio n without much difficulty. The embolic protection device was deploy ed in the distal right internal carotid artery (Emboshield 4-7 mm). M easurements were obtained and a 7-9x40 XACT tapered self expanding sten t was selected. The stent passed without difficulty and did not require pr e-dilation. The stent was successfully deployed and post-dilated with 6.5x20 Viatrac peripheral balloon. Angiography showed a well deploy ed stent with no evidence of dissection. The embolic protection filte r was then removed and repeat cerebral angiography showed no change from the pre-procedure angiograms. Post-neurologic assessment showed no new defects and t he patient was transferred to recovery in stable condition. HEMOSTASIS: proglide suture deployed DISPOSITION: Return patient to nursing unit and monito r for groin complications. EBL: <30 mL CONDITION: Stable COMPLICATIONS: None SPECIMENS: None Leonard Shannon MD Interventional Aluminum Can Collector [facility] 02/14/2020 Performing Organization Address [facility] [place] Phon e Number [facility] [address] [place] [address], Activated clotting time (02/14/2020 11:58 AM SPRAY MACHINE TENDER) Activated clotting 393 (H) 96 - 152 sec [facility] Comment: HOSPITAL Surgical Aide Name: Jannette Ovalles Device ID: [id number] Specimen Performing Organization Address [facility] [place] Phon e Number [facility] DEPARTMENT OF PATHOLOGY AND [address] [place] [phone] GENOMIC MEDICINE [address] [address] ECG Pre/Post Op (02/14/2020 8:45 AM SPRAY MACHINE TENDER) Pathologist Sig nature Ventricular rate 64 [facility]USE Atrial rate 64 [facility] ND interval 246 [facility] QRSD interval 90 [facility] QT interval 422 [facility] QTC interval 435 [facility] P axis 1 70 [facility] QRS axis 1 50 [facility] MUSE T wave axis 71 [facility] MUSE EKG impression Sinus rhythm with 1st [facility] MUSE degree AV block-Otherwise normal ECG-In automated comparison with ECG of 23-JAN-2020 13:15,-No significant change was found- Specimen Narrative Performed At This result has an attachment that is no t available. Performing Organization Address City/[facility]/ZIP Code Phon e Number [facility] MUSE [address] [place] [phone] Prothrombin time with INR (02/09/2020 10:15 AM SPRAY MACHINE TENDER)Only the most recent of2 resultswithin the time period is included. Pathologist [facility] Prothrombin time 14.1 11.5 - 14.5 [facility] INR 1.1 YOLYN Comment: OWEN The International Normalized Ratio (INR) is a therapeu [facility] HOSPITAL monitoring tool for patients who are stable on oral anticoagulant therapy. An INR of 2.0-3.0 is suggested for deep vein thrombosis/pulmonary embolism. Specimen Blood Performing Organization Address City/[facility] [place] Phon e Number [facility] DEPARTMENT OF PATHOLOGY AND [address] [place], [place] [address] GENOMIC MEDICINE [address] [address] Comprehensive metabolic panel (02/09/2020 10:15 AM SPRAY MACHINE TENDER)Only the most recent of2 resultswithin the time period is included. Pathologist [facility] Sodium 142 135 - 148 [facility] mEq/L [facility] Potassium 4.8 3.5 - 5.0 [facility] mEq/L [facility] Chloride 102 98 - 112 [facility] mEq/L [facility] CO2 30 24 - 31 mEq/L [facility] Anion gap 10@ANIO 7 - 15 mEq/L [facility] BUN 21 8 - 23 mg/dL [facility] Creatinine 1.18 (H) 0.50 - 0.90 [facility] mg/dL [facility] Glucose 128 (H) 65 - 99 mg/dL [facility] Calcium 9.6 8.8 - 10.2 [facility] mg/dL [facility] Protein 7.3 6.3 - 8.3 [facility] Comment: g/dL HOSPITAL - 4.6-7.0 g/dL 1 week 4.4-7.6 g/dL 7 months-1year 5.1-7.3 g/dL 1-2 years 5.6-7.5 g/dL >3 years 6.0-8.0 g/dL 18-150 6.3-8.3 g/dL Albumin 3.6 3.5 - 5.0 [facility] g/dL [facility] A/G ratio 1.0 0.7 - 3.8 [facility] Alkaline phosphatase 38 35 - 104 U/L [facility] AST 32 10 - 35 U/L [facility] ALT 24 5 - 50 U/L [facility] Total bilirubin 0.4 0.0 - 1.2 [facility] mg/dL HOSPITAL Specimen Plasma Performing Organization Address [facility] [place] Phon e Number [facility] DEPARTMENT OF PATHOLOGY AND [address] [place] [address] COVID-19 qualitative PCR (02/09/2020 10:12 AM SPRAY MACHINE TENDER)Only the most recent of2 resultswithin the time period is included. Interpretation Negative results do not prec lude 2019-nCoV infection and should not be used as the sole basis for treatment or other patient management decisions. Negative results must be combined with clinical observations, patient history, and epidemiological YOLYN information. [facility] COVID-19 qualitative Not-Detected Not-Detecte YOLYN PCR result d [facility] qualitative See link below for YOLYN PCR PDF Lab [facility] ReportComment: Case HOSPITAL Number: [id number] Specimen Nasopharyngeal swab Performing Organization Address City/[facility] [place] Phon e Number [facility] DEPARTMENT OF PATHOLOGY AND [address] [place] [address] 0 [place] [phone] [facility] collaborating supervising physician procedure (01/31/2020 11:25 AM CDT) Specimen Narrative Performed At This [facility] has an attachment that is no t available. After obtaining informed consent, the patient was brought to the cardiac [facility]NGO catheterization suite. The right groin was prepped and draped in normal sterile fashion. The right femoral artery was located by ultrasound, and 1% xylocaine was used as local anesthetic. The artery was subsequently accessed using the Seldinger technique, and a 4F glide sheath was inserted. Heparin was administered intravenously. JL4 and JR4 ca theters were advanced over a wholey wire to access the left and rig ht coronary systems, respectively, and selective coronary angiography was p erformed. Standard views were obtained. JR4 and 3DRC were subsequently us ed to selectively engage the right and left common carotid arteries, res pectively, and selective bilateral carotid angiography was performed. Findings: 1. Severe (80%) stenosis of the ostial right internal carotid artery. 2. Mild stenosis of the ostial left internal carotid a rtery. 3. Patent prior OM1 stent. 4. Mild (30%) stenosis of the first diagonal artery an d distal left anterior descending artery. 5. Mild (30%) proximal right coronary artery stenosis. Recommendations: 1. Neurology consultation (Dr. James). 2. Plan for right internal carotid artery intervention in 1 week. Performing Organization Address City/State/ZIP Code Phon e Number [facility] [address] [place] [address], [place] carotid duplex (01/23/2020 3:01 PM CDT) Specimen Narrative Performed At [facility] Carotid Nadine ry Ultrasound Report Pat.Name: CLAIRE BAKER Pat.ID: [id number] St.Date: 01/23/2020 Refer.MD: DELONTE CAIN MD Exam Time: 2:02:00 PM Study Type:C lesly Age: 9 1945,74Y Sex: FEMALE Sonogrphr: Apryl Awad RVT Pat. Stat.:Outp atient Room: [facility] ol: [place], CPT - 4: [address] Echo Angela nt ID:[id number] Order ID: [id number] Reason for Study:Carotid artery disease, Hx of TIA, CAD, S/P coronary stent placement Race: C SUMMARY: CAROTID ARTERY SCAN RIGHT: There is smooth intimal lining in the common carotid artery. There is hard and soft plaque noted in t he bulb extending into the proximal internal and external carotid a rtery. Colorflow is disturbed with elevated velocities in the internal carotid artery. There is antegrade flow in the vertebral artery. LEFT: There is hard plaque in the common carot id artery. There is hard and calcified plaque noted in the bulb extending into the proximal internal carotid artery. [place] rflow is undisturbed. There is antegrade flow in the vertebral artery. PRELIMINARY FINDINGS 1. 70-99% stenosis in the right proxim al internal carotid artery. 2. <50% stenosis in the left bulb/architect internship al carotid artery. 3. Antegrade bilateral vertebral artery flow. PHYSICIAN INTERPRETATION Bilateral carotid duplex examination dem onstrated atherosclerotic plaques in the bulbs/internal carotid ar teries. There appears 70-99% stenosis in the rig ht proximal internal carotid artery. Less than 50% stenosis in the left bulb and internal carotid artery. Both vertebral arteries are antegrade. FINDINGS: Carotid Findings: Right Left Verteb.Flw Antegrade Antegrade Subclavian Biphasic Triphasic MEASUREMENTS: DOPPLER Right CCA Dist CCA Dist PSV 58 cm/s CCA Dist EDV 8.75 cm/s Right CCA Mid CCA Mid PSV 68.9 cm/s CCA Mid EDV 9.84 cm/s Right CCA Prox CCA Prox PSV 79.8 cm/s CCA Prox EDV 7.66 cm/s Right Bulb Bulb PSV 89.7 cm/s Bulb EDV 6.19 cm/s Right ECA Prox ECA Prox PSV 125 cm/s ECA Prox EDV 0 cm/s Right ICA Dist ICA Dist PSV 88.3 cm/s ICA Dist EDV 23.6 cm/s Right ICA Mid ICA Mid PSV 288 cm/s ICA Mid EDV 50.7 cm/s ICA Prox ICA Prox PSV 390 cm/s ICA Prox EDV 83 cm/s Right Vertebral Vertebral PSV 44.8 cm/s Vertebral EDV 0 cm/s Left CCA Dist CCA Dist PSV 101 cm/s CCA Dist EDV 11.2 cm/s Left CCA Prox CCA Prox PSV 108 cm/s CCA Prox EDV 11.5 cm/s Left Bulb Bulb PSV 70.9 cm/s Bulb EDV 7.46 cm/s Left ECA Prox ECA Prox PSV 85.8 cm/s ECA Prox EDV 0 cm/s Left ICA Dist ICA Dist PSV 69 cm/s ICA Dist EDV 11.2 cm/s Left ICA Mid ICA Mid PSV 122 cm/s ICA Mid EDV 13.8 cm/s Left ICA Prox ICA Prox PSV 74.6 cm/s ICA Prox EDV 7.46 cm/s Left Vertebral Vertebral PSV 54.1 cm/s Vertebral EDV 13.1 cm/s Left CCA Mid CCA Mid PSV 122 cm/s CCA Mid EDV 13 cm/s Right SCA Prox SCA Prox PSV 136 cm/s SCA Prox EDV 0 cm/s Left SCA Prox SCA Prox PSV 170 cm/s SCA Prox EDV 0 cm/s Right ICA/CCA Ratio ICA/CCA PSV 5.66 Left ICA/CCA Ratio ICA/CCA PSV 0.611 Signed 01/24/2020 06:27 AM Delonte Cain MD Procedure Note Interface, Radiology Results In - 2019 6:28 AM CDT Scientologist [facility] Carotid Artery Ultras ound Report Pat.Name: CLAIRE BAKER Pat.I D: [id number] .Date: 01/23/2020 Refer .MD: DELONTE CAIN MD Exam Time: 2:02:00 PM Study Type:Carotid Age: 9 1945,74Y Sex: FEMALE Sonogrphr: Apryl Awad RVT Pat. Stat.:Outpatient Room: [facility] Vol: SD, CPT - 4: 77328 Echo Event ID:[id number] Order ID: [id number] Reason for Study:Carotid artery disease, Hx of TIA, CAD, S/P coronary stent placement Race: C SUMMARY: CAROTID ARTERY SCAN RIGHT: There is smooth intimal lining i n the common carotid artery. There is hard and soft plaque noted in t he bulb extending into the proximal internal and external carotid a rtery. Colorflow is disturbed with elevated velocities in the internal carotid artery. There is antegrade flow in the vertebral artery. LEFT: There is hard plaque in the c ommon carotid artery. There is hard and calcified plaque noted in the bulb extending into the proximal internal carotid artery. Color flow is undisturbed. There is antegrade flow in the vertebral artery. PRELIMINARY FINDINGS 1. 70-99% stenosis in the right proxima l internal carotid artery. 2. <50% stenosis in the left bulb/architect internship al carotid artery. 3. Antegrade bilateral vertebral artery flow. PHYSICIAN INTERPRETATION Bilateral carotid duplex examination dem onstrated atherosclerotic plaques in the bulbs/internal carotid ar teries. There appears 70-99% stenosis in the rig ht proximal internal carotid artery. Less than 50% stenosis in the left bulb and internal carotid artery. Both vertebral arteries are antegrade. FINDINGS: Carotid Findings: Right Left Verteb.Flw Antegrade Antegrade Subclavian Biphasic Triphasic MEASUREMENTS: DOPPLER Right CCA Dist CCA Dist PSV 58 cm/s CCA Dist EDV 8.75 cm/s Right CCA Mid CCA Mid PSV 68.9 cm/s CCA Mid EDV 9.84 cm/s Right CCA Prox CCA Prox PSV 79.8 cm/s CCA Prox EDV 7.66 cm/s Right Bulb Bulb PSV 89.7 cm/s Bulb EDV 6.19 cm/s Right ECA Prox ECA Prox PSV 125 cm/s ECA Prox EDV 0 cm/s Right ICA Dist ICA Dist PSV 88.3 cm/s ICA Dist EDV 23.6 cm/s Right ICA Mid ICA Mid PSV 288 cm/s ICA Mid EDV 50.7 cm/s ICA Prox ICA Prox PSV 390 cm/s ICA Prox EDV 83 cm/s Right Vertebral Vertebral PSV 44.8 cm/s Vert ebral EDV 0 cm/s Left CCA Dist CCA Dist PSV 101 cm/s CCA Dist EDV 11.2 cm/s Left CCA Prox CCA Prox PSV 108 cm/s CCA Prox EDV 11.5 cm/s Left Bulb Bulb PSV 70.9 cm/s Bulb EDV 7.46 cm/s Left ECA Prox ECA Prox PSV 85.8 cm/s ECA Prox EDV 0 cm/s Left ICA Dist ICA Dist PSV 69 cm/s ICA Dist EDV 11.2 cm/s Left ICA Mid ICA Mid PSV 122 cm/s ICA Mid EDV 13.8 cm/s Left ICA Prox ICA Prox PSV 74.6 cm/s ICA Prox EDV 7.46 cm/s Left Vertebral Vertebral PSV 54.1 cm/s Vert ebral EDV 13.1 cm/s Left CCA Mid CCA Mid PSV 122 cm/s CCA Mid EDV 13 cm/s Right SCA Prox SCA Prox PSV 136 cm/s SCA Prox EDV 0 cm/s Left SCA Prox SCA Prox PSV 170 cm/s SCA Prox EDV 0 cm/s Right ICA/CCA Ratio ICA/CCA PSV 5.66 Left ICA/CCA Ratio ICA/CCA PSV 0.611 Signed 01/24/2020 06:27 AM Delonte Cain MD Performing Organization Address City/State/ZIP Code Phon e Number [facility] [id number] [place] [address] ECG 12 lead (01/23/2020 1:15 PM CDT) Pathologist Sig nature Ventricular rate 70 [facility] Atrial rate 70 [facility] ND interval 212 [facility] QRSD interval 92 [facility] QT interval 406 [facility] QTC interval 438 [facility] P axis 1 68 [facility] QRS axis 1 78 [facility] T wave axis 77 [facility] EKG impression Sinus rhythm with 1st [facility] degree AV block-Incomplete right bundle branch block-Borderline ECG-In automated comparison with ECG of 27-DEC-2018 12:36,-No significant change was found- Specimen Narrative Performed At This result has an attachment that is no t available. Performing Organization Address City/State/ZIP Code Phon e Number [facility] [id number] [place] [address] after 03/18/2019 Advance Directives For more information, please contact: [phone] Type Date Recorded Patient Line Repairer Explanati on Advance Directives, Living Will and Medical Power of Redye Hand
--- OUTSIDE RECORDS SUMMARY | 2020-03-18 19:42 | XMS REPORT | Continuity of Care Document ---
:[address] [facility] t Address [address] [place] [address] Care Team Providers Name Role Phone Jennifer NEWSOME Primary Care Physician PAYTON Attending Clinician Unavailable Charlee MONTANO Attending Clinician Unavailable Provider Attending Clinician Unavailable Temo MONTANO Attending Clinician Unavailable PAYTON Admitting Clinician Unavailable Payers Payer Name Policy Type Policy Effective Date Expiration Date Sour ce Number AETNA MEDICAREAETNA [id number] 2016 [place] MEDICARE HMO/PPO 00:00:00 Methodis t [id number] Problems Condition Condition Condition Status Onset Resolution Last Treating Co mments Source Name Details Category Date Date Treatment Clinician Date PAD PAD Disease Active 2019-04 [place] (periphera (periphera 2-08 Me thodi l artery l artery 00:00: st disease) disease) 00 Carotid Carotid Disease Active 2019-04 [place] artery artery 2-08 Methodi disease disease 00:00: st 00 Coronary Coronary Disease Active 2019-04 Overview: [facility] artery artery 1-02 Added Methodi disease disease 00:00: automatic st involving involving 00 ally [place] request coronary coronary for artery artery surgery [id number] Angina Angina Disease Active 2019-04 [place] pectoris pectoris 0-20 Method i 00:00: st 00 SOB SOB Disease Active [place] (shortness (shortness 9-24 Me thodi of breath) of breath) 00:00: st 00 Dry eye Dry eye Disease Active Last [place] syndrome syndrome 9-14 Assessmen Met hodi of both of both 00:00: t & Plan: st eyes eyes 00 BLL punctal atresia. BUL large plugs intact.D/ C Restasis now, didn't feel it helped much before, and may not need now with plugs.No change to MRx given last visit. STable, corrects better OS to 20/20 like OD.Return PRN. 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 Transient Transient Disease Active Gurvinder ston cerebral cerebral 06-04 Method i ischemia ischemia 00:00: st 00 Essential Essential Disease Active Gurvinder ston hypertensi hypertensi 3- Me thodi on on 00:00: st 00 CAD in CAD in Disease Active [place] 06-04 Methodi artery artery 00:00: st 00 History of History of Disease Active [place] coronary coronary 06-04 Method i artery artery 00:00: st stent stent 00 placement placement Diabetes Diabetes Disease Active 2015-04 Last [place] mellitus mellitus 0-05 Assessmen Met hodi without without 00:00: t & Plan: st complicati complicati 00 S/p dense on on PRP OU in past with Dr. Castro and now Dr Butterfield.Cont inues to see Dr. Butterfield. 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 Garcia after abnormal VF test. Past vision rehab with [facility].Rem inded patient of this diagnosis and imperfect ions in her vision as a result of this, she stated "this is the first time someone has told me about the stroke". REminded her that she knew about this in the past and underwent vision rehab, which then she remembere d. Dislocated Dislocated Disease Active 2015-04 Last [place] IOL IOL 0-05 Assessmen Methodi (intraocul (intraocul 00:00: t & Plan: st ar lens), ar lens), 00 -OCT posterior posterior does not show any IOL tilt OD. And updated MRx today is 1.25 D less cyl, now c/w kerotomet ry. So no IOL tilt OD. However, slight IOL tilt observed OS, but patient asymptoma tic OS and no significa nt changes in refractio n, so no additiona l w/u recommend ed.MRx updated.1 year. Pain, Pain, Diagnosis Active [facility] shoulder, [facility] meredith right right l Outpati ent Clinics Primary Primary Diagnosis Active [facility] osteoarthr osteoarthr [facility] k[facility] - itis of itis of Memoria right right l shoulder shoulder Outpat i ent Clinics Impingemen Impingemen Diagnosis Active [facility] t syndrome t syndrome Lary kes - of right of right Memori a shoulder shoulder l Outpati ent Clinics Sprain of Sprain of Diagnosis Active [facility] right right [facility] - rotator rotator Memoria cuff cuff l capsule, capsule, Outpat i initial initial ent encounter encounter Clin ics Allergies, Adverse Reactions, Alerts Allergy Allergy Status Severity Reaction(s) Onset Inactive Treating Comm ents Source Name Type Date Date Clinician Cephalex Propensi Active Rash 2015-04 [place] in ty to 0-05 Methodi adverse 00:00: st reaction 00 s to drug Codeine Propensi Active GI 2015-04 [place] ty to Intolerance 0-05 Metho di adverse 00:00: st reaction 00 s to drug Penicill Propensi Active Rash 2015-04 [place] ins ty to 0-05 Methodi adverse 00:00: st reaction 00 s to drug Sulfamet Propensi Active Rash 2015-04 [place] hoxazole ty to 0-05 Methodi -Trimeth adverse 00:00: st oprim reaction 00 s to drug Bactrim Adverse Active Info Not [facility] Reaction Available [facility] Clin[facility] Family History Family Member Diagnosis Comments Start Date Stop Date Source Natural brother Macular degeneration [place] Rastafarian Natural father Diabetes [place] Rastafarian Maternal aunt No Known Problems [place] Rastafarian Maternal No Known Problems Smith grandfather Rastafarian Maternal No Known Problems Smith grandmother Rastafarian Maternal uncle No Known Problems Gurvinder ston Rastafarian Natural mother Cataracts [place] Rastafarian Natural mother Diabetes [place] Rastafarian Paternal aunt No Known Problems [place] Rastafarian Paternal Cataracts Smith grandfather Rastafarian Paternal Diabetes Smith grandfather Rastafarian Paternal No Known Problems Smith grandmother Rastafarian Paternal uncle No Known Problems Gurvinder [place] Rastafarian Natural sister Cancer [place] Rastafarian Natural sister Diabetes Luis Rastafarian Family member Amblyopia Msith Rastafarian Family member Aneurysm [place] Rastafarian Family member Blindness [place] Rastafarian Family member Fuchs' dystrophy [place] Rastafarian Family member Glaucoma [place] Rastafarian Family member Hypertension [place] Rastafarian Family member Keratoconus [place] Rastafarian Family member Multiple sclerosis Gurvinder reyes Rastafarian Family member Ptosis [place] Rastafarian Family member Retinal detachment Gurvinder reyes Rastafarian Family member Strabismus [place] Rastafarian Family member Stroke [place] Rastafarian Family member Thyroid disease [place] Rastafarian Social History Social Habit Start Date Stop Date Quantity Comments Source Sex Assigned At [place] Rastafarian Exposure to Not sure [place] SARS-CoV-2 Rastafarian (event) Tobacco use and 2020-02-15 2020-02-15 Never used [place] exposure 00:00:00 00:00:00 Rastafarian Alcohol intake 2020-02-15 2020-02-15 Current drinker of [place] sellers 00:00:00 00:00:00 alcohol (finding) Methodi st Alcohol Comment 2020-01-31 2020-01-31 occasionally [place] 00:00:00 00:00:00 Rastafarian Smoking Status Start Date Stop Date Source Former smoker 2020-02-15 00:00:00 2020-02-15 00:00:00 [place] Rastafarian Medications Ordered Filled Start Stop Current Ordering Indication Dosage Frequency Signature Comments Components Source Medication Medication Date Date Medication? Clinician (SIG) Name Name losartan 2019-04- Yes 100mg QD Take 1 [place] (COZAAR) 05-13 tablet Methodi 100 MG 00:00: 23:59 ([address] tablet 00 :00 total) by mouth daily. metoprolol 2019-04- Yes 50mg Q.5D Take 1 [place] tartrate 05-13 tablet (50 Meth vadim (LOPRESSOR) 00:00: 23:59 mg total) st 50 mg 00 :00 by mouth 2 tablet (two) times a day. losartan 2019-04- No 50mg QD Take 50 mg [place] (COZAAR) 50 1-13 11-13 by mouth Met hodi MG tablet 14:43: 00:[address] 29 :00 levothyroxi 2019-04 Yes 125ug QD Take 125 [place] ne 1-13 mcg by Methodi (SYNTHROID, 14:43: mouth st LEVOTHROID) 27 every 125 MCG morning. tablet metFORMIN 2019-04 Yes 1000mg Q.5D Take 1,000 Smith (GLUCOPHAGE 1-13 mg by Methodi ) 1000 MG 14:43: mouth 2 st tablet 27 (two) times a day with meals. INSULIN 2020- Yes Inject Smith SUBCUTANEOU -13 under the Met hodi S PUMP, 14:43: skin st NOVOLOG, 27 continuous 100 UNIT/ML ly. Pt INSULIN took it PUMP off 30 min INFUSION ago (NovoLOG) empaglifloz 2020- Yes 25mg QD Take 25 mg Smith in 13 by mouth Methodi (JARDIANCE) 14:43: every st 25 mg 27 morning. tablet biotin 2020- Yes 1{capsu QD Take 1 [place] 10,000 mcg 1-13 le} capsule by Met hodi capsule 14:43: mouth st 27 every evening. liraglutide 2020- Yes Inject [place] (VICTOZA) 13 under the Metho di 0.6 mg/0.1 14:43: skin. st mL (18 mg/3 27 Taking 0.6 mL) pen mg/0.1 ml injector in the morning and 1.2 mg/0.1ml in evening multivit-mi 2020- Yes 1{tbl} QD Take 1 [place]/iron/foli 1-13 tablet by Met siobhani c/lutein 14:43: mouth st (MULTIVITAM 27 every IN WOMEN 50 morning. PLUS ORAL) docosahexae 2020- Yes 1200mg Take 1,200 Smith noic 1-13 mg by Methodi acid/epa 14:43: mouth. 1 st (FISH OIL 27 capsule in ORAL) morning and 2 capsules in the evening cholecalcif 2020- Yes 1000U Q2D Take 1,000 Smith jackson, 1-13 Units by Methodi vitamin D3, 14:43: mouth st 1,000 unit 27 every tablet other day. zinc 50 mg 2020- Yes 1{tbl} QD Take 1 Gurvinder ston tablet 1-13 tablet by Methodi 14:43: mouth st 27 every morning. magnesium 2020- Yes 1{tbl} QD Take 1 [place] oxide 500 1-13 tablet by Metho di mg capsule 14:43: mouth st 27 every morning. potassium 2020-1 Yes 1{tbl} QD Take 1 [place] gluconate 1-13 tablet by Metho di 595 mg (99 14:43: mouth st mg) tablet 27 every evening. ascorbic 2020-1 Yes 1000mg QD Take 1,000 [place] acid, 1-13 mg by Methodi vitamin C, 14:43: mouth st (VITAMIN C) 27 every 1000 MG morning. tablet vitamin E 2019-04 Yes 400U QD Take 400 [place] 400 UNIT -13 Units by Methodi capsule 14:43: mouth st 27 every evening. atorvastati 2019-04 Yes 40mg QD Take 40 mg Smith n (LIPITOR) 04-17 by mouth Meth vadim 40 mg 14:43: every st tablet 27 morning. lansoprazol 2019-04 Yes 30mg QD Take 30 mg Smith e 04-17 by mouth Methodi (PREVACID) 14:43: daily. st 30 MG 27 capsule fenofibrate 2019-04 Yes 145mg QD Take 145 [place] (TRICOR) 1-13 mg by Methodi 145 MG 14:43: mouth st tablet 27 daily. aspirin 2019-04- No 81mg QD Take 81 mg Gurvinder ston (ECOTRIN) 04-17 by mouth Metho di 81 MG 13:19: 00:[address] enteric 34 :00 evening. coated tablet clopidogreL 2019-04- No 75mg QD Take 75 mg Smith (PLAVIX) 75 04-17 by mouth Met hodi mg tablet 13:19: 00:[address] 34 :00 aspirin 2019-04- Yes 81mg QD Take 1 Smith (ECOTRIN) 04-17 tablet (81 Met hodi 81 MG 00:00: 23:59 mg total) st enteric 00 :00 by mouth coated every tablet evening for 90 days. clopidogreL 2019-04- Yes 75mg QD Take 1 Gurvinder ston (PLAVIX) 75 04-17 tablet (75 M ethodi mg tablet 00:00: 23:59 mg total) st 00 :00 by mouth daily for 90 days. ASCORBIC 2019-04- No Take by [place] ACID/VIT 0-28 01- mouth. Methodi B12/ZINC 15:17: 00:00 st (ZINC PLUS 07 :00 ORAL) clopidogreL 2019-04- No TAKE 1 Gurvinder ston (PLAVIX) 75 0-26 - TABLET BY Me thodi mg tablet 00:00: 00:[address] 00 :00 EVERY DAY losartan 2019-04- No TAKE 1 [place] (COZAAR) 50 0-26 10-28 TABLET BY Me thodi MG tablet 00:00: 00:[address] 00 :00 EVERY DAY clopidogreL 2019- No TAKE 1 Gurvinder ston (PLAVIX) 75 8-03 10-26 TABLET BY Me thodi mg tablet 00:00: 00:[address] 00 :00 EVERY DAY losartan 2019- No TAKE 1 [place] (COZAAR) 50 8-03 10-26 TABLET BY Me thodi MG tablet 00:00: 00:[address] 00 :00 EVERY DAY metoprolol 2019- No 25mg Q.5D Take 1 [place] tartrate 6-04 15- tablet (25 Meth vadim (LOPRESSOR) 00:00: 00:00 mg total) st 25 mg 00 :00 by mouth 2 tablet (two) times a day. losartan 2019- No 50mg QD Take 1 [place] (COZAAR) 50 5-12 08-03 tablet (50 M ethodi MG tablet 00:00: 00:00 mg total) st 00 :00 by mouth daily. clopidogreL 2019- No TAKE 1 Gurvinder ston (PLAVIX) 75 5-12 08-03 TABLET BY Me thodi mg tablet 00:00: 00:[address] 00 :00 EVERY DAY lansoprazol 2019- No Coronary TAKE 1 Smith e 1-21 -28 artery CAPSULE BY Method i (PREVACID) 00:00: 00:[address] 30 MG 00 :00 involving EVERY DAY capsule [place] heart with angina pectoris, unspecified vessel or lesion type ([facility]) atorvastati 2019- No Coronary TAKE 1 Smith n (LIPITOR) 1-20 - artery TABLET BY Methodi 40 MG 00:00: 00:[address] tablet 00 :00 involving EVERY DAY [place] heart without angina pectoris, unspecified vessel or lesion type fenofibrate 2018-04- No TAKE 1 Gurvinder ston (TRICOR) 2-11 - TABLET BY Metho di 145 MG 00:00: 00:[address] tablet 00 :00 EVERY DAY metoprolol 2019- No TAKE 1 [place] tartrate 8- 06- TABLET BY Metho di (LOPRESSOR) 00:00: 00:[address] 25 mg 00 :00 TWICE A tablet DAY Plavix Plavix Yes Tab [address] [facility] - 00:00: [facility]oria 00 [facility] Yes Tab not [facility] defined [facility] - 00:00: Memoria 00 [facility] Tresiba Tresiba Yes Tab As [facility] Directed [facility] - 00:00: Memoria 00 [facility] losartan 2020- No TAKE 1 [place] (COZAAR) 50 4-30 05-12 TABLET BY Me thodi MG tablet 00:00: 00:[address] 00 :00 EVERY DAY clopidogrel 2019- No TAKE 1 Gurvinder reyes (PLAVIX) 75 4-30 05-12 TABLET BY Me thodi mg tablet 00:00: 00:[address] 00 :00 EVERY DAY atorvastati 2017-04- No Coronary 40mg QD Take 1 Luis lozada (LIPITOR) 05-09 artery tablet (40 Methodi 40 MG 00:00: 00:00 disease mg total) st tablet 00 :00 involving by mouth [place] daily. heart without angina pectoris, unspecified vessel or lesion type lansoprazol 2017-04- No Coronary 30mg QD Take 1 Luis e 05-08 artery capsule Methodi (PREVACID) 00:00: 00:00 disease (30 mg s t 30 MG 00 :00 involving total) by capsule [place] mouth heart with daily. angina pectoris, unspecified vessel or lesion type ([facility]) [facility] Yes 12U Q.5D 12 Units 2 [place] FLEXTOUCH 1-17 (two) Methodi U-100 100 00:00: times a st unit/mL (3 00 day. 12 mL) insulin units in pen the morning and 12 units in the evening escitalopra Yes 20mg QD Take 20 mg Luis baum (LEXAPRO) 11-11 by mouth Meth vadim 20 MG 00:00: every st tablet 00 morning. Metformin Metformin Yes Tab TAKE [address] [facility] HCl HCl Lopez TABLET BY [facility] - MOUTH Memoria TWICE A l DAY [facility] Fenofibrate Fenofibrate Yes Tab TAKE [address] [facility] TABLET BY [facility] Losartan Losartan Yes Tab TAKE [address] Potassium Potassium Lopez TABLET BY [facility] - MOUTH Memoria EVERY DAY l Outpati ent Clinics Escitalopra Escitalopra Yes Tab TAKE [address] [facility] m Oxalate m Oxalate Lopez TABLET BY [facility] - MOUTH Memoria EVERY DAY. l Outpati ent Clinics Jardiance Jardiance Yes Tab TAKE [address] [facility] TABLET BY [facility] - MOUTH Memoria EVERY DAY l Outpati ent Clinics Levothyroxi Levothyroxi Yes Tab TAKE [address] [facility] ne Sodium ne Sodium Lopez TABLET BY [facility] - MOUTH Memoria EVERY DAY l Outpati ent Clinics Lansoprazol Lansoprazol Yes Tab TAKE [address] [facility] e e Lopez CAPSULE BY [facility] - MOUTH Memoria EVERY DAY l Outpati ent Clinics Victoza Victoza Yes Tab SUBCUTANEO [facility] US INJECT [facility] - UNDER THE Memoria SKIN 1.8MG l DAILY Outpati DIRECTED ent Clinics Metoprolol Metoprolol Yes Tab TAKE [address] [facility] Tartrate Tartrate Lopez TABLET BY Lary kes - MOUTH Memoria TWICE A l DAY Outpati ent Clinics Atorvastati Atorvastati Yes Tab TAKE [address] [facility] n Calcium n Calcium Lopez TABLET BY [facility] - MOUTH Memoria EVERY DAY l Outpati ent Clinics NovoLog NovoLog Yes Tab INJECTABLE [facility] SUBCUTANEO [facility] - USLY 31 Memoria UNITS l EVERY DAY Outpati AND ent NEEDED Clinics Vital Signs Vital Name Observation Time Observation Value Comments Source Systolic blood 2020-03-12 11:01:00 230 mm[Hg] Meredith[place] n Rastafarian pressure Diastolic blood 2020-03-12 11:01:00 97 mm[Hg] [place] Rastafarian pressure Heart rate 2020-03-12 11:01:00 82 /min Luis Hutchison Body height 2020-03-12 11:01:00 172.7 cm [place] Rastafarian Body weight 2020-03-12 11:01:00 69.4 kg Luis Hutchison BMI 2020-03-12 11:01:00 23.26 kg/m2 [place] Rastafarian Body temperature 2020-02-16 12:00:07 36.67 Sheyla Meredith pollard Rastafarian Respiratory rate 2020-02-16 12:00:07 16 /min Meredith pollard Rastafarian Oxygen saturation in 2020-02-16 12:00:07 98 /min Luis Hutchison Arterial blood by Pulse oximetry Procedures Procedure Date / Time Performed Performing Clinician Sourc e US RENAL DOPPLER 2020-03-15 11:53:04 Delonte Cain Met hodist POC GLUCOSE 2020-02-16 12:01:00 Delonte Cain Meth odist POC GLUCOSE 2020-02-16 09:34:00 Delonte Cain Meth odist HC COMPLETE BLD COUNT 2020-02-16 05:50:00 Kylee Gomez Rastafarian W/AUTO DIFF BASIC METABOLIC PANEL 2020-02-16 04:00:00 Kylee Gomez Rastafarian MAGNESIUM LEVEL 2020-02-16 04:00:00 Kylee Gomez Me thodist PHOSPHORUS LEVEL 2020-02-16 04:00:00 Kylee Gomez M ethodist ESTIMATED GFR 2020-02-16 04:00:00 Kylee Gomez Me thodist POC GLUCOSE 2020-02-15 21:06:00 Delonte Cain Meth odist POC GLUCOSE 2020-02-15 17:01:00 Delonte Cain Meth odist POC GLUCOSE 2020-02-15 12:19:00 Delonte Cain Meth odist POC GLUCOSE 2020-02-15 07:34:00 Delonte Cain odist HEMOGLOBIN A1C 2020-02-15 05:40:00 Leonard Shannon Me thodist CBC HEMOGRAM 2020-02-15 05:40:00 Leonard Shannon Me thodist BASIC METABOLIC PANEL 2020-02-15 05:40:00 Leonard Shannon Rastafarian ESTIMATED GFR 2020-02-15 05:40:00 Delonte Cain Meth odist LIPID PANEL 2020-02-15 05:40:00 Delonte Cain Meth odist POC GLUCOSE 2020-02-14 20:53:00 Delonte Cain Meth odist POC GLUCOSE 2020-02-14 17:05:00 Delonte Cain Meth odist POC GLUCOSE 2020-02-14 14:20:00 Delonte Cain Meth odist POC GLUCOSE 2020-02-14 13:03:00 Delonte Cain odeugenia CV UNLISTED STOCK MIXER 2020-02-14 12:34:35 Delonte Cain PROCEDURE CV CAROTID ARTERY STENT W 2020-02-14 12:34:35 Delonte Cain EMBOLIC PROTECTION POC GLUCOSE 2020-02-14 12:01:00 Delonte Cain odeugenia ACTIVATED CLOTTING TIME 2020-02-14 11:58:00 Delonte Cain POC GLUCOSE 2020-02-14 11:08:00 Delonte Cain Meth odist POC GLUCOSE 2020-02-14 10:09:00 Delonte Cain odist POC GLUCOSE 2020-02-14 09:05:00 Delonte Cain ECG PRE/POST OP 2020-02-14 08:45:47 Delonte Cain odist POC GLUCOSE 2020-02-14 08:27:00 Delonte Cain PROTHROMBIN TIME WITH INR 2020-02-09 10:15:00 Delonte Cain COMPREHENSIVE METABOLIC 2020-02-09 10:15:00 Delonte Cain PANEL HC COMPLETE BLD COUNT 2020-02-09 10:15:00 Delonte Cain W/AUTO DIFF ESTIMATED GFR 2020-02-09 10:15:00 Delonte Cain odist COVID-19 QUALITATIVE PCR 2020-02-09 10:12:00 Delonte Cain POC GLUCOSE 2020-01-31 11:55:00 Delonte Cain odeugenia CV SELECTIVE CORONARY 2020-01-31 11:25:59 Delonte Cain ANGIOGRAPHY CV ANGIOGRAM CAROTID 2020-01-31 11:25:59 Delonte Cain BILATERAL POC GLUCOSE 2020-01-31 10:37:00 Delonte Cain odist POC GLUCOSE 2020-01-31 09:10:00 Delonte Cain odist COVID-19 QUALITATIVE PCR 2020-01-26 10:20:00 Delonte Cain Rastafarian CBC WITH PLATELET AND 2020-01-26 10:14:00 Delonte Cain Rastafarian DIFFERENTIAL COMPREHENSIVE METABOLIC 2020-01-26 10:14:00 Delonte Cain Rastafarian PANEL PROTHROMBIN TIME WITH INR 2020-01-26 10:14:00 Delonte Cain Rastafarian US CAROTID DUPLEX 2020-01-23 15:01:57 Delonte Cain Me thodist BILATERAL ECG 12-LEAD 2020-01-23 13:15:57 Delonte Cain Meth odist Plan of Care Planned Activity Planned Date Details Comments Source Future Scheduled 2021-03-15 DIABETES: RETINAL EYE [place] Rastafarian Test 00:00:00 EXAM [code = DIABETES: RETINAL EYE EXAM] Future Scheduled 2019-11-04 INFLUENZA VACCINE [place] Rastafarian Test 00:00:00 [code = INFLUENZA VACCINE] Future Scheduled 2012-12-11 65+ PNEUMOCOCCAL [place] Rastafarian Test 00:00:00 VACCINE (1 of 1 - PPSV23) [code = 65+ PNEUMOCOCCAL VACCINE (1 of 1 - PPSV23)] Future Scheduled 1997-12-11 BREAST CANCER [facility] thodist Test 00:00:00 SCREENING [code = BREAST CANCER SCREENING] Future Scheduled 1997-12-11 COLONOSCOPY SCREENING [place] Rastafarian Test 00:00:00 [code = COLONOSCOPY SCREENING] Future Scheduled 1997-12-11 SHINGLES VACCINES (#1) [place] Rastafarian Test 00:00:00 [code = SHINGLES VACCINES (#1)] Future Scheduled 1963 COVID-19 VACCINE (#1) [place] Rastafarian Test 00:00:00 [code = COVID-19 VACCINE (#1)] Future Scheduled 1957-12-11 DIABETIC FOOT EXAM [place] Rastafarian Test 00:00:00 [code = DIABETIC FOOT EXAM] Future Scheduled 1957-12-11 URINE MICROALBUMIN [place] Rastafarian Test 00:00:00 [code = URINE MICROALBUMIN] Encounters Start End Encounter Admission Attending Care Care Encounter Source Date/Time Date/Time Type Type Clinicians Facility Department ID 2020-03-15 2020-03-15 Outpatient [facility] [id number] [place] 00:00:00 00:00:00 DELONTE Mcgregor [facility] 2020-03-12 2020-03-12 Outpatient [facility] [id number] [place] 00:00:00 00:00:00 DELONTE [address] 2020-02-14 2020-02-16 Inpatient PAYTON, [facility] 021 [id number] [place] 00:00:00 00:00:00 DELONTE [address] 2020-02-09 2020-02-09 Outpatient CAIN, [facility] [id number] [place] 00:00:00 00:00:00 DELONTE [address] 2020-01-31 2020-01-31 Outpatient CAIN, [facility] [id number] [place] 00:00:00 00:00:00 DELONTE [address] 2020-01-26 2020-01-26 Outpatient PAYTON, [facility] [id number] [place] 00:00:00 00:00:00 DELONTE [address] 2020-01-26 2020-01-26 Outpatient PAYTON, [facility] [id number] [place] 00:00:00 00:00:00 DELONTE [address] 2020-01-23 2020-01-23 Outpatient PAYTON, [facility] [id number] [place] 00:00:00 00:00:00 DELONTE [address] 2020-01-23 2020-01-23 Outpatient CAIN, [facility] [id number] [place] 00:00:00 00:00:00 DELONTE [address] 2018-10-10 2018-10-10 [facility] [id number] [address] 15:24:00 15:24:00 [facility] 2018-10-10 2018-10-10 [facility] [id number] 10:00:00 10:00:00 t [facility] Results Test Description Test Time Test Comments Results Result Comments Source POC glucose 2020-02-16 12:07:59 Test Item Value Reference Range Interpretation Comme nts POC glucose (test code = 116 mg/dL 65-99 H Ope rator Name: Lux Huggins Giancarlo [id number]) ID: [id number] hartable: [facility] Notified internal revenue service agent Interpretation (test code = Abnormal 18843-7) [place] [facility] [id number] 07:34:09 Test Item Value Reference Range Interpretation Comments Sodium (test code = 2951-2) 138 135- 148 mEq/L Potassium (test code = 2823-3) 4.3 3.5- 5.0 mEq/L Chloride (test code = 2075-0) 108 98- 112 mEq/L CO2 (test code = 8-9) 23 24- 31 mEq/L L Anion gap (test code = 79567-9) 7@ANIO 7- 15 mEq/L BUN (test code = 3094-0) 31 mg/dL 8-23 H Creatinine (test code = 2160-0) 1.17 mg/dL 0.5-0.9 H Glucose (test code = 2345-7) 97 mg/dL 65-99 Calcium (test code = 54483-6) 8.7 mg/dL 8.8-10.2 L Lab Interpretation (test code = Abnormal 39656-7) Luis [facility]Magnesium [id number] 07:34:09 Test Item Value Reference Range Interpretation Comments Magnesium (test code = 05479-6) 2.3 mg/dL 1.6-2.4 Luis MethodistEstimated [id number] 07:34:09 Test Item Value Reference Range Interpretation Comments Estimated GFR (test 46 mL/min/1.73 m2 Teo Calvin pachecosaul Units code = 5488) InterpretationG 1 >=90 Arlette l or highG2 60-89 Mildly decrease dG3a 45-59 Mil dly to moderately decr wrcquP1g 30-44 Moderately to s everely decreasedG4 15-29 Severe ly decreasedG5 <15 Kidney val lureThe eGFR was calcul ated using the Chron ic Kidney Disease Epidemiology Collaboration ( CKD-EPI) equation. Interpretation is based on recommendati ons of the National Ki dney Foundation-Kidn ey Disease Outcome s Quality Initiat celeste (NKF-KDOQI) pub lished in 2013. Lab Interpretation Abnormal (test code = 69621-0) Luis MethodistPhosphorus [id number] 07:34:08 Test Item Value Reference Range Interpretation Comments Phosphorus (test code = 2777-1) 3.1 mg/dL 2.4-4.5 Luis MethodistCBC with platelet and [id number] 06:47:16 Test Item Value Reference Range Interpretation Comments WBC (test code = 57591-2) 6.24 4.50- 11.00 k/uL RBC (test code = 88421-0) 3.65 m/uL 4.2-5.5 L HGB (test code = 718-7) 11.1 g/dL 12-16 L HCT (test code = 4544-3) 34.5 % 37-47 L MCV (test code = 787-2) 94.5 fL 82-100 MCH (test code = 785-6) 30.4 pg 27-34 MCHC (test code = 786-4) 32.2 g/dL 31-37 RDW - SD (test code = 47.8 fL 37-55 10341-5) MPV (test code = 35304-3) 10.0 fL 8.8-13.2 Platelet count (test code 170 150- 400 k/uL = 89596-9) Nucleated RBC (test code 0.00 /100 WBC = 21243-0) Neutrophils (test code = 58.2 % 39-69 91242-3) Lymphocytes (test code = 25.0 % 25-45 98480-2) Monocytes (test code = 8.8 % 0-10 96005-1) Eosinophils (test code = 7.2 % 0-5 H 62435-2) Basophils (test code = 0.6 % 0-1 22760-5) Immature granulocytes 0.2 % 0-1 "Immat ure (test code = 89253-1) granul ocytes" (promyelocytes, myelocytes, metamyelocytes) Lab Interpretation (test Abnormal code = 57518-0) [facility] [id number] 07:59:16 Test Item Value Reference Interpretation Comments Range Cholesterol (test 108 mg/dL <200 code = 2093-3) Triglycerides (test 98 mg/dL <150 code = 2571-8) HDL cholesterol 34 mg/dL >40 L (test code = 2085-9) LDL cholesterol 59 mg/dL <100 Result obtai xuan by direct (test code = 2089-1) LDL kasie surement Lipid panel SeeBelow Total Cholester ol (mg/dL) interpretation (test < 200 code = 74477-6) Desirable 200-239 Borderline -high >=240 Hi gh Triglyceri latesha (mg/dL) <150 No rmal 150-199 Borderline-high 200-499 High >=500 Very high HDL Choles terol (mg/dL) <40 Low (male) < 40 Low (female) L DL Cholesterol (mg /dL) <100 Optimal 1 00-129 Near or above o ptimal 130-159 Borderline-high 160-189 High >=190 Very high Risk Cat ergories that modify LDL goals.Risk Catergories LDL goal (mg/dL )CHD and CHD risk equiva lent <100 (10-year risk >20%)Multiple ( 2+) risk factors < 130 (10-year risk = <20%)0-1 risk factors <160 (<10-ye ar risk) Defining levels of lipids in metabolic syndromeTriglyc erides > =150 mg/dLHDL Choles terol Men <40 mg/dL Women <40 mg/dL Non-HDL cholest jacskon is a second target f or therapy in personswith high triglycerides ( >=200 mg/dL) Lab Interpretation Abnormal (test code = 39548-5) [facility] [id number] 07:57:47 Test Item Value Reference Range Interpretation Comments Hemoglobin A1C (test 7.2 % 4-5.6 H HbA1c c utoffs for code = 59097-5) diagnosing diabetes:4.0% - 5.6% = normal5.7% - 6.4% = increased risk for diabetes (prediabetes)9> =6.5% = [id number] s for glycemic contro l (ADA 2016)< 7.0% Ta rget for non adults with frederic betes. More or less stringent targe ts may be appropriate for individual destiny ents. <7.5% Target for Children and adolescents wit h type 1 diabetes. Lab Interpretation (test Abnormal code = 81568-6) [facility] [id number] 07:34:12 Test Item Value Reference Range Interpretation Comments WBC (test code = 90150-1) 8.80 4.50- 11.00 k/uL RBC (test code = 22013-7) 4.05 m/uL 4.2-5.5 L HGB (test code = 718-7) 12.1 g/dL 12-16 HCT (test code = 4544-3) 38.5 % 37-47 MCV (test code = 787-2) 95.1 fL 82-100 MCH (test code = 785-6) 29.9 pg 27-34 MCHC (test code = 786-4) 31.4 g/dL 31-37 RDW - SD (test code = 11109-2) 49.0 fL 37-55 MPV (test code = 84651-6) 10.0 fL 8.8-13.2 Platelet count (test code = 208 150- 400 k/uL 73944-5) Nucleated RBC (test code = 0.00 /100 WBC 05909-0) Lab Interpretation (test code = Abnormal 36077-1) [facility] Pre/Post [id number] 23:38:33 Test Item Value Reference Range Interpretation Comments Ventricular rate (test 64 code = 253) Atrial rate (test code 64 = 255) NC interval (test code 246 = 266) QRSD interval (test 90 code = 260) QT interval (test code 422 = 264) QTC interval (test code 435 = 265) P axis 1 (test code = 70 267) QRS axis 1 (test code = 50 268) T wave axis (test code 71 = 270) EKG impression (test Sinus rhythm with 1st code = 273) degree AV block-Otherwise normal ECG-In automated comparison with ECG of 23-JAN-2020 13:15,-No significant change was found- [facility] lab [id number] 19:00:19PREOPERATIVE DIAGNOSIS1. Right Carotid artery stenosis POSTOPERATIVE DIAGNOSIS1. Right internal carotid artery stenosis PROCEDURES PERFORMED 1. Right carotid angiography2. CREW MEMBER and stenting of right internal carotid artery with distal embolic protection device placement PRIMARY OPERATORAlaustin Cain MD, Service Order Dispatcher Chief FIRST ASSISTANTLeonard Shannon MD Interventional Deli Cutter Slicer ANESTHESIA USEDLocal 2% lidocaine, Conscious Sedation DESCRIPTION OF PROCEDUREThe procedure was described to the patient including benefits, risks, and alternatives to the procedure. The patient confirmed understanding and signed the informed consent. Patient was prepped and draped in sterile fashion. Conscious sedation provided to patient throughout procedure with appropriate monitoring. The right common femoral artery (VACATION PLANNER) was palpated and the region above the artery was anesthetized with 2% local lidocaine. Using micropunctureneedle, arterial access was obtained in the right VACATION PLANNER and 6 sheath was placed in the right VACATION PLANNER. We then advanced a 6 Fr diagnostic catheter over the whooley wire in the right CCA. The whooley wire was advanced into the right ECA. Multiple angiographic views were obtained showing severe 90% stenosis of the right internal carotid artery. Cerebral angiography was obtained in multiple views prior to beginning the procedure. The shuttle sheath was then advanced in the distal CCA over the Wholey wire. A filter wire was inserted and passed across thelesion without much difficulty. The embolic protection device was deployed in the distal right internal carotid artery (Emboshield 4-7 mm). Measurements were obtained and a 7-9x40 XACT tapered self expanding stent was selected. The stent passed without difficulty and did not require pre-dilation.The stent was successfully deployed and post-dilated with 6.5x20 Viatrac peripheral balloon. Angiography showed a well deployed stent with no evidence of dissection. The embolic protection filter wasthen removed and repeat cerebral angiography showed no change from the pre-procedure angiograms. Post-neurologic assessment showed no new defects and the patient was transferred to recovery in stable condition. HEMOSTASIS: proglide suture deployed DISPOSITION: Return patient to nursing unit andmonitor for groin complications. EBL: <30 mL CONDITION: Stable COMPLICATIONS: None SPECIMENS: None Leonard Shannon MD Interventional Cardiology FellowSamaritan Medical Centerodi[facility] [id number] invasive peripheral vascular [id number] 19:00:18PREOPERATIVE DIAGNOSIS1. Right Carotid artery stenosis POSTOPERATIVE DIAGNOSIS1. Right internal carotid artery stenosis PROCEDURES PERFORMED 1. Right carotid angiography2. CREW MEMBER and stenting of right internal carotid artery with distal embolic protection device placement PRIMARY OPERATORAlaustin Cain MD, Service Order Dispatcher Chief FIRST ASSISTANTLeonard Shannon MD Interventional Deli Cutter Slicer ANESTHESIA USEDLocal 2% lidocaine, Conscious Sedation DESCRIPTION OF PROCEDUREThe procedure was described to the patient including benefits, risks, and alternatives to the procedure. The patient confirmed understanding and signed the informed consent. Patient was prepped and draped in sterile fashion. Conscious sedation provided to patient throughout procedure with appropriate monitoring. The right common femoral artery (VACATION PLANNER) was palpated and the region above the artery was anesthetized with 2% local lidocaine. Using micropunctureneedle, arterial access was obtained in the right VACATION PLANNER and 6 sheath was placed in the right VACATION PLANNER. We then advanced a 6 Fr diagnostic catheter over the whooley wire in the right CCA. The whooley wire was advanced into the right ECA. Multiple angiographic views were obtained showing severe 90% stenosis of the right internal carotid artery. Cerebral angiography was obtained in multiple views prior to beginning the procedure. The shuttle sheath was then advanced in the distal CCA over the Wholey wire. A filter wire was inserted and passed across thelesion without much difficulty. The embolic protection device was deployed in the distal right internal carotid artery (Emboshield 4-7 mm). Measurements were obtained and a 7-9x40 XACT tapered self expanding stent was selected. The stent passed without difficulty and did not require pre-dilation.The stent was successfully deployed and post-dilated with 6.5x20 Viatrac peripheral balloon. Angiography showed a well deployed stent with no evidence of dissection. The embolic protection filter wasthen removed and repeat cerebral angiography showed no change from the pre-procedure angiograms. Post-neurologic assessment showed no new defects and the patient was transferred to recovery in stable condition. HEMOSTASIS: proglide suture deployed DISPOSITION: Return patient to nursing unit andmonitor for groin complications. EBL: <30 mL CONDITION: Stable COMPLICATIONS: None SPECIMENS: None Leonard Shannon MD Interventional Cardiology FellowThe [facility] Jhpjjq1702/14/2020[facility]Act[facility] clotting [id number] 12:05:38 Test Item Value Reference Range Interpretation Comments Activated clotting time 393 96- 152 sec H Oper ator Name: (test code = 5298) Jannette Dhaliwal I D: [id number] Lab Interpretation Abnormal (test code = 09038-5) [facility] MethodistCOVID-19 qualitative [id number] 17:55:50 Test Item Value Reference Range Interpretation Comments Interpretation (test Negative results do code = 3766483) not preclude 2019-nCoV infection and should not be used as the sole basis for treatment or other patient management decisions. Negative results must be combined with clinical observations, patient history, and epidemiological information. COVID-19 qualitative Not-Detected Not-Detected PCR result (test code = 28161-7) COVID-19 qualitative See link below for C ase Number: PCR (test code = PDF Lab Report [id number]) [facility] [id number] 12:49:57 Test Item Value Reference Range Interpretation Comments Sodium (test code = 142 135- 148 mEq/L 2951-2) Potassium (test code = 4.8 3.5- 5.0 mEq/L 2823-3) Chloride (test code = 102 98- 112 mEq/L 2075-0) CO2 (test code = 2027-9) 30 24- 31 mEq/L Anion gap (test code = 10@ANIO 7- 15 mEq/L 98015-7) BUN (test code = 3094-0) 21 mg/dL 8-23 Creatinine (test code = 1.18 mg/dL 0.5-0.9 H 2160-0) Glucose (test code = 128 mg/dL 65-99 H 2345-7) Calcium (test code = 9.6 mg/dL 8.8-10.2 67792-8) Protein (test code = 7.3 g/dL 6.3-8.3 -[place] n 2885-2) 4.6-7.0 g/dL1 week 4.4-7 .6 g/dL7 months-1y ear 5.1-7 .3 g/dL1-2 years 5.6-7 .5 g/dL>3 years 6.0-8 .0 g/xC70-647 6.3-8 .3 g/dL Albumin (test code = 3.6 g/dL 3.5-5 1751-7) A/G ratio (test code = 1.0 0.7-3.8 1759-0) Alkaline phosphatase 38 U/L 35-104 (test code = 6768-6) AST (test code = 1920-8) 32 U/L 10-35 ALT (test code = 1742-6) 24 U/L 5-50 Total bilirubin (test 0.4 mg/dL 0-1.2 code = 1974-2) Lab Interpretation (test Abnormal code = 92508-0) [facility] MethodistProthrombin time with [id number] 12:02:10 Test Item Value Reference Range Interpretation Comments Prothrombin time (test 14.1 11.5- 14.5 sec code = 5902-2) INR (test code = 1.1 [facility]5) Normalized Rati o (INR) is a therapeutic m onitoring tool for patien ts who are stable on oral anticoagulant t herapy. An INR of 2.0-3.0 is suggested for d eep vein thrombosis/pulm onary embolism. [facility] [id number] 12:41:09After obtaining informed consent, the patient was brought to the cardiac catheterization suite. The right groin was prepped and draped in normal sterile fashion. The right femoral artery was located byultrasound, and 1% xylocaine was used as local anesthetic. The artery was subsequently accessed using the Seldinger technique, and a 4F glidesheath was inserted. Heparin was administered intravenously.JL4 and JR4 catheters were advanced over a wholey wire to access the left and right coronary systems, respectively, and selective coronary angiography was performed. Standard views were obtained. JR4 and 3DRC were subsequently used to selectively engage the right and left common carotid arteries, respectively, and selective bilateral carotid angiography was performed. Findings:1. Severe (80%) stenosis of the ostial right internal carotid artery.2. Mild stenosis of the ostial left internal carotid artery.3. Patent prior OM1 stent.4. Mild (30%) stenosis of the first diagonal artery and distal left anterior descending artery.5. Mild (30%) proximal right coronary artery stenosis. Recommendations:1. Neurology consultation (Dr. James).2. Plan for right internal carotid artery intervention in 1 week.[facility] 12 [id number] 14:25:03 Test Item Value Reference Range Interpretation Comments Ventricular rate (test 70 code = 253) Atrial rate (test code 70 = 255) NC interval (test code 212 = 266) QRSD interval (test 92 code = 260) QT interval (test code 406 = 264) QTC interval (test code 438 = 265) P axis 1 (test code = 68 267) QRS axis 1 (test code = 78 268) T wave axis (test code 77 = 270) EKG impression (test Sinus rhythm with 1st code = 273) degree AV block-Incomplete right bundle branch block-Borderline ECG-In automated comparison with ECG of 27-DEC-2018 12:36,-No significant change was found- Luis Hutchison
[2020-03-18] MEDS ORDERED: LIDOCAINE 1% MPF 5 ML VIAL ONE (21:30)
--- NOTE | 2020-03-18 21:58 | ER ---
Nurse's Notes [facility] Name: Claire Baker Age: 74 yrs Sex: Female : 1945 Arrival Date: 03/18/2020 Time: 19:41 Bed 16 Private MD: Diagnosis: Laceration without foreign body of left ring finger without damage to nail Presentation: 03/18 19:50 Chief complaint: Patient states: Accidentally cut on L ring finger last night at around ca1 6pm with a knife. Am on blood thinners so it has not stopped bleeding until now. Applied pressure dressing in triage. Coronavirus screen: Client denies travel out of the [place] in the last 14 days. At this time, the client does not indicate any symptoms associated with coronavirus-19. Ebola Screen: Patient negative for fever greater than or equal to 101.5 degrees Fahrenheit, and additional compatible Ebola Virus Disease symptoms Patient denies exposure to infectious person. Patient denies travel to an Ebola-affected area in the 21 days before illness onset. No symptoms or risks identified at this time. Initial Sepsis Screen: Does the patient meet any 2 criteria? No. Patient's initial sepsis screen is negative. Does the patient have a suspected source of infection? No. Patient's initial sepsis screen is negative. Risk Assessment: Do you want to hurt yourself or someone else? Patient reports no desire to harm self or others. Onset of symptoms was March 17, 2020 at 18:00. 19:50 Method Of Arrival: Ambulatory ca1 19:50 Acuity: VIJAY 4 ca1 Triage Assessment: 21:45 Injury Description: Laceration sustained to left hand. ll2 Historical: - Allergies: 19:54 Bactrim; ca1 19:54 Cephalexin Monohydrate; ca1 19:54 Codeine; ca1 19:54 PENICILLINS; ca1 19:54 Sulfa (Sulfonamide Antibiotics); ca1 - PMHx: 19:54 Diabetes - IDDM; Hypertension; Hyperlipidemia; Hypothyroidism; High Cholesterol; ca1 - PSHx: 19:54 Heart stents; Carotid surgery; Appendectomy; Tubal ligation; ca1 - Immunization history:: Adult Immunizations up to date, Last tetanus immunization: unknown, Flu vaccine is up to date. - Social history:: Smoking status: Patient denies any tobacco usage or history of. Screenin:44 Abuse screen: Denies threats or abuse. Nutritional screening: No deficits noted. ll2 Tuberculosis screening: No symptoms or risk factors identified. Fall Risk None identified. Assessment: 21:00 General: Appears in no apparent distress. Behavior is calm, cooperative, appropriate ll2 for age. Pain:. Neuro: Level of Consciousness is awake, alert, obeys commands, Oriented to person, place, time, situation. Cardiovascular: Patient's skin is warm and dry. Respiratory: Airway is patent Respiratory effort is even, unlabored, Respiratory pattern is regular, symmetrical. GI: No signs and/or symptoms were reported involving the gastrointestinal system. : No signs and/or symptoms were reported regarding the genitourinary system. EENT: No signs and/or symptoms were reported regarding the EENT system. Derm: Skin is healthy with good turgor, laceration to index finger on lt hand Skin is dry, Skin is pink, warm \T\ dry. Musculoskeletal: Circulation, motion, and sensation intact. Range of motion: intact in all extremities. Vital Signs: 19:50 BP 161 / 82; Pulse 83; Resp 16 S; Temp 97.1(TE); Pulse Ox 98% on R/A; Weight 69.4 kg ca1 (R); Height 5 ft. 8 in. (172.72 cm) (R); Pain 0/10; 22:13 BP 145 / 80; Pulse 85; Resp 18; Pulse Ox 99% on R/A; ll2 19:50 Body Mass Index 23.26 (69.40 kg, 172.72 cm) ca1 ED Course: 19:41 Patient arrived in ED. cl3 19:53 Triage completed. ca1 19:54 Arm band placed on right wrist. Pressure dressing applied. ca1 20:53 Zoran De La Garza NP is PHCP. pm1 20:53 Frederick Lancaster MD is Attending Physician. pm1 21:12 Sharlene Hooks RN is Primary Nurse. ll2 21:44 No provider procedures requiring assistance completed. Patient did not have IV access ll2 during this emergency room visit. 21:45 Patient has correct armband on for positive identification. Call light in reach. Side ll2 rails up X 1. Pulse ox on. NIBP on. Administered Medications: 21:41 Drug: Lidocaine (1 %) 5 ml Volume: 5 ml; Route: Infiltration; ll2 Outcome: 21:57 Discharge ordered by . pm1 22:13 Discharged to home ambulatory. ll2 22:13 Condition: stable 22:13 Discharge instructions given to patient, Instructed on discharge instructions, follow up and referral plans. medication usage, Demonstrated understanding of instructions, follow-up care, medications. 22:14 Patient left the ED. ll2 Signatures: Zoran De La Garza NP LINING MACHINE TENDER pm1 Chelsey Reis RN RN ca1 Piero Echavarria cl3 Sharlene Hooks RN RN ll2
--- NOTE | 2020-03-18 21:58 | EDPHYS ---
Physician Documentation [facility] Name: Claire Baker Age: 74 yrs Sex: Female : 1945 Arrival Date: 03/18/2020 Time: 19:41 Bed 16 Private MD: ED Physician Frederick Lancaster HPI: 03/18 21:12 This 74 yrs old Female presents to ER via Ambulatory with complaints of pm1 Finger Injury, Laceration To Finger. 21:12 The patient or guardian reports a laceration. The complaints affect the palmar aspect pm1 of distal phalanx of left ring finger. Context: The problem was sustained at home, resulted from accidentally cut it with knife. Onset: The symptoms/episode began/occurred yesterday, at 18:00. Modifying factors: The symptoms are alleviated by pressure to area, just prior to arrival. Patient wanted suturing due to duration of bleeding and taking blood thinners. Associated signs and symptoms: Pertinent negatives: cyanosis distally, decreased sensation distally, numbness distally, tingling distally. Severity of symptoms: in the emergency department the symptoms have improved. The patient has not experienced similar symptoms in the past. The patient has not recently seen a physician. Historical: - Allergies: 19:54 Bactrim; ca1 19:54 Cephalexin Monohydrate; ca1 19:54 Codeine; ca1 19:54 PENICILLINS; ca1 19:54 Sulfa (Sulfonamide Antibiotics); ca1 - PMHx: 19:54 Diabetes - IDDM; Hypertension; Hyperlipidemia; Hypothyroidism; High Cholesterol; ca1 - PSHx: 19:54 Heart stents; Carotid surgery; Appendectomy; Tubal ligation; ca1 - Immunization history:: Adult Immunizations up to date, Last tetanus immunization: unknown, Flu vaccine is up to date. - Social history:: Smoking status: Patient denies any tobacco usage or history of. ROS: 21:12 Constitutional: Negative for fever, chills, and weight loss. pm1 21:12 Cardiovascular: Negative for chest pain, palpitations, and edema, Respiratory: Negative for shortness of breath, cough, wheezing, and pleuritic chest pain. 21:12 Neuro: Negative for headache, weakness, numbness, tingling, and seizure. 21:12 MS/extremity: Positive for injury or acute deformity, pain, of the palmar aspect of distal phalanx of left ring finger, Negative for decreased range of motion, deformity. 21:12 Skin: Positive for laceration(s), of the palmar aspect of distal phalanx of left ring finger. Exam: 21:12 Constitutional: This is a well developed, well nourished patient who is awake, alert, pm1 and in no acute distress. Head/Face: Normocephalic, atraumatic. 21:12 Cardiovascular: Exam negative for acute changes, Rate: normal, Rhythm: regular, Pulses: no pulse deficits are appreciated. 21:12 Respiratory: Exam negative for acute changes, respiratory distress, shortness of breath. 21:12 Skin: Appearance: normal except for affected area, injury, laceration(s), that can be described as clean, no foreign body, irregular, without bleeding. 21:12 Neuro: Exam negative for acute changes, Orientation: is normal, Mentation: is normal, Motor: is normal, moves all fours. Vital Signs: 19:50 BP 161 / 82; Pulse 83; Resp 16 S; Temp 97.1(TE); Pulse Ox 98% on R/A; Weight 69.4 kg ca1 (R); Height 5 ft. 8 in. (172.72 cm) (R); Pain 0/10; 22:13 BP 145 / 80; Pulse 85; Resp 18; Pulse Ox 99% on R/A; ll2 19:50 Body Mass Index 23.26 (69.40 kg, 172.72 cm) ca1 Laceration: 21:54 Wound Repair of 1.5cm ( 0.6in ) subcutaneous laceration to palmar aspect of distal pm1 phalanx of left ring finger. Irregularly shaped.. Distal neuro/vascular/tendon intact. Anesthesia: Digital block administered with 3 mls of 1% lidocaine. Wound prep: Extensive cleansing with betadine by me, Wound irrigation with saline by me, Wound explored extensively, Copious irrigation. Skin closed with 1 4-0 Prolene using 1 single stitch placed to loosely approximate wound. Dressed with Neosporin, 4x4's. Patient tolerated well. MDM: 20:53 Patient medically screened. pm1 21:54 Data reviewed: vital signs. Counseling: I had a detailed discussion with the patient pm1 and/or guardian regarding: the historical points, exam findings, and any diagnostic results supporting the discharge/admit diagnosis, the need for outpatient follow up, a family practitioner, a hand specialist, to return to the emergency department if symptoms worsen or persist or if there are any questions or concerns that arise at home. 03/18 21:11 Order name: Prolene, Sutures; Complete Time: 21:13 pm1 03/18 21:11 Order name: Dressing - Wound; Complete Time: 21:13 pm1 03/18 21:11 Order name: Gloves, Sterile; Complete Time: 21:13 pm1 03/18 21:11 Order name: Setup Suture Tray; Complete Time: 21:13 pm1 Administered Medications: 21:41 Drug: Lidocaine (1 %) 5 ml Volume: 5 ml; Route: Infiltration; ll2 Disposition: 23:02 Co-signature as Attending Physician, Frederick Lancaster MD. rn Disposition: 03/18/20 21:57 Discharged to Home. Impression: Laceration without foreign body of left ring finger without damage to nail. - Condition is Stable. - Discharge Instructions: Laceration Care, Adult. - Prescriptions for Doxycycline Hyclate 100 mg Oral Tablet - take 1 tablet by ORAL route every 12 hours; 20 tablet. - Medication Reconciliation Form, Thank You Letter, Antibiotic Education, Prescription Opioid Use form. - Follow up: Emergency Department; When: As needed; Reason: Worsening of condition. Follow up: Private Physician; When: 2 - 3 days; Reason: Recheck today's complaints, Continuance of care, Re-evaluation by your physician. - Problem is new. - Symptoms have improved. Signatures: Frederick Lancaster MD MD rn Marinas, Patrick, NP CENTRAL OFFICE TECHNICIAN pm1 Chelsey Reis RN RN ca1 Linscombe, Lacie, RN RN ll2 Corrections: (The following items were deleted from the chart) 22:14 21:57 03/18/2020 21:57 Discharged to Home. Impression: Laceration without foreign body ll2 of left ring finger without damage to nail. Condition is Stable. Forms are Medication Reconciliation Form, Thank You Letter, Antibiotic Education, Prescription Opioid Use. Follow up: Emergency Department; When: As needed; Reason: Worsening of condition. Follow up: Private Physician; When: 2 - 3 days; Reason: Recheck today's complaints, Continuance of care, Re-evaluation by your physician. Problem is new. Symptoms have improved. pm1
[2020-03-21 13:56] VITALS: TEMP 97.1
[2020-03-21 13:59] VITALS: BP 145/80; O2SAT 99
== END 2020-03-18 22:14 | disposition home or self-care (01) ==
LOC: ER 19:38
PROC: 0JQK0ZZ Repair Left Hand Subcutaneous Tissue and Fascia, Open Approach (ICD-10-PCS; principal; 2020-03-18)
DX: S61.215A Laceration without foreign body of left ring finger without damage to nail, initial encounter (principal); W26.0XXA Contact with knife, initial encounter; Y93.9 Activity, unspecified; Y92.009 Unspecified place in unspecified non-institutional (private) residence as the place of occurrence of the external cause; I10 Essential (primary) hypertension; Z95.818 Presence of other cardiac implants and grafts; Z88.0 Allergy status to penicillin; Z88.1 Allergy status to other antibiotic agents; Z88.2 Allergy status to sulfonamides; Z88.5 Allergy status to narcotic agent
CPT/HCPCS: 99283

== ENCOUNTER 2022-01-05 06:51 | Day surgery (SDC) | payer OTHER ==
[2022-01-05] MEDS ORDERED: DEXTROSE 10%-WATER 500 ML IV ONE (07:07)
[2022-01-05] MEDS ORDERED: propofoL 200 MG/20 ML VIAL IV ONE ×2 (08:07)
[2022-01-05] MEDS ORDERED: LIDOCAINE 1% MPF 2 ML AMPULE ONE (08:08)
[2022-01-05] MEDS: NA CHLORIDE 0.9% 1,000 ML ONE ×2 (08:14→08:18)
[2022-01-05] MEDS ORDERED: HYDRALAZINE HCL 20 MG/ML VIAL ONE (08:32)
--- NOTE | 2022-01-05 08:52 | ENDO RPT ---
[address], [address] COLONOSCOPY PROCEDURE REPORT EXAM DATE: 01/05/2022 PATIENT NAME: Claire Baker MR #: [id number] BIRTHDATE: 1945 ATTENDING: Adriano Garcia MD STATUS: outpatient INVESTMENT COUNSELOR: Peter Lomeli CST and Rukhsana Montes RN INDICATIONS: The patient is a 76 yr old Female here for a colonoscopy due to personal history of colon polyps and colon cancer screening PROCEDURE PERFORMED: Colonoscopy with biopsy - cold polypectomy MEDICATIONS: Per Anesthesia. ESTIMATED BLOOD LOSS: None CONSENT: The patient understands the risks and benefits of the procedure and understands that these risks include, but are not limited to: sedation, allergic reaction, infection, perforation and/or bleeding. Alternative means of evaluation and treatment include, among others: physical exam, x-rays, and/or surgical intervention. The patient elects to proceed with this endoscopic procedure. DESCRIPTION OF PROCEDURE: During intra-op preparation period all mechanical medical equipment was checked for proper function. Hand hygiene and appropriate measures for infection prevention was taken. Procedure, possible complications, alternatives including, but not limited to possibility of bleeding, perforation, tear, infection, sepsis, need for surgery, need for blood transfusion, were explained to the patient. After the risks, benefits and alternatives of the procedure were thoroughly explained, Informed consent was verified, confirmed and timeout was successfully executed by the treatment team. The patient was placed in the left lateral position. After appropriate level of anesthesia, the scope was passed. The EC-[id number] ([id number]) endoscope was introduced through the anus and advanced to the cecum, which was identified by the ileocecal valve. The quality of the prep was good. The instrument was then slowly withdrawn as the colon was fully examined. Scope withdrawal time was . COLON FINDINGS: Diverticula was found throughout the entire examined colon. The opening was medium sized. Internal and external hemorrhoids were found. A smooth sessile polyp ranging between 3-5mm in size was found in the distal sigmoid colon. A polypectomy was performed using hot forceps. The resection was complete, the polyp tissue was completely retrieved and sent to histology. Retroflexed views revealed no abnormalities. The scope was then completely withdrawn from the patient and the procedure terminated. ADVERSE EVENTS: There were no complications. IMPRESSIONS: 1. Diverticula throughout the entire examined colon 2. Internal and external hemorrhoids 3. Sessile polyp ranging between 3-5mm in size was found in the distal sigmoid colon; polypectomy was performed in a piecemeal fashion using hot forceps RECOMMENDATIONS: 1. follow-up: office 1 week(s) 2. await biopsy results 3. no seeds in diet 4. hemorrhoidal hygiene RECALL: for Colonoscopy, pending biopsy results. Adriano Garcia MD eSigned: Adriano Garcia MD 01/05/2022 8:52 AM cc: Trae Rodriguez M.D. CPT CODES: ICD9 CODES: PATIENT NAME: Claire Baker MR#: [id number]
[2022-01-05 09:41] VITALS: O2SAT 100
[2022-01-05 09:42] VITALS: TEMP 97.6
[2022-01-05 09:43] VITALS: BP 146/63
== END 2022-01-05 09:23 | disposition home or self-care (01) ==
LOC: OR 06:51
PROVIDERS: ATTEND Surgery
PROC: 0DBN8ZX Excision of Sigmoid Colon, Via Natural or Artificial Opening Endoscopic, Diagnostic (ICD-10-PCS; principal; 2022-01-05 08:30)
DX: Z86.010 Personal history of colon polyps (principal); K63.5 Polyp of colon; K64.4 Residual hemorrhoidal skin tags; K64.8 Other hemorrhoids; K57.30 Diverticulosis of large intestine without perforation or abscess without bleeding
CPT/HCPCS: 82947 ×3; 88305; 45384; J0360; J2704 ×2; J7030

== ENCOUNTER 2024-06-03 16:56 | Emergency (ER) | payer OTHER ==
[2024-06-03 17:31] LABS: Absolute Eosinophils 0.2 K/uL (0-0.5); Absolute Lymphocytes (CBC) 1.2 K/uL (0.7-4.9); Absolute Monocytes 0.6 K/uL (0.1-1.3); Absolute Neutrophil 3.4 K/uL (1.8-8.0); Basophils % 0.7 % (0-1.3); Hematocrit 42.8 % (36.0-45.0); Lymphocytes % 22.5 % (15.3-44.8); MCH 32.4 pg (27.0-35.0); MCHC 35.1 g/dL (32.0-36.0); MCV 92.3 fL (80-100); MPV 8.4 fL (7.6-11.3); Monocytes % 10.6 % (3.3-12.3); Neutrophils % 63.2 % (41.7-73.7); Nucleated Red Blood Cells % 0.2 % (0-0); Platelets 248 thou/uL (152-406); RBC Red Blood Cell Count 4.64 M/uL (3.86-4.86); Red Cell Distribution Width 14.2 % (12.1-15.2)
[2024-06-03 17:48] LABS: Albumin 3.6 g/dL (3.4-5.0); Albumin/Globulin Ratio 1.1 (1.1-1.8); Anion Gap 9.1 mEq/L (5.0-15.0); Bilirubin Total 0.4 mg/dL (0.2-1.0); Globulin 3.4 g/dL (2.3-3.5); Potassium 4.1 mEq/L (3.5-5.1)
[2024-06-03] MEDS ORDERED: INSULIN REGULAR (HUMAN) 100 UNIT/ML ONE ×2 (18:25→20:43)
[2024-06-03] MEDS ORDERED: NA CHLORIDE 0.9% 1,000 ML ONE (18:26)
--- NOTE | 2024-06-03 21:33 | ER ---
Nurse's Notes [facility] Name: Claire Baker Age: 78 yrs Sex: Female : 1945 Arrival Date: 06/03/2024 Time: 16:56 Bed 18 Private MD: Diagnosis: Hyperglycemia, unspecified Presentation: 06/03 17:18 Chief complaint: Patient states: High blood sugar x 2 weeks. Coronavirus screen: Client ss denies travel out of the [place] in the last 14 days. Ebola Screen: Patient denies exposure to infectious person. Patient denies travel to an Ebola-affected area in the 21 days before illness onset. Initial Sepsis Screen: Does the patient meet any 2 criteria? No. Patient's initial sepsis screen is negative. Does the patient have a suspected source of infection? No. Patient's initial sepsis screen is negative. Risk Assessment: Do you want to hurt yourself or someone else? Patient reports no desire to harm self or others. Onset of symptoms was May 2024. 17:18 Method Of Arrival: Ambulatory ss 17:18 Acuity: VIJAY 3 ss Historical: - Allergies: 17:20 Bactrim; ss 17:20 Cephalexin Monohydrate; ss 17:20 Codeine; ss 17:20 PENICILLINS; ss 17:20 Sulfa (Sulfonamide Antibiotics); ss - PMHx: 17:20 Hypothyroidism; Hypertension; Hyperlipidemia; High Cholesterol; Diabetes - IDDM; ss - Infectious Disease History:: Denies. - Social history:: Smoking status: Patient denies any tobacco usage or history of. Screenin:49 [facility] ED Fall Risk Assessment (Adult) History of falling in the last 3 months, ay including since admission No falls in past 3 months (0 pts) Confusion or Disorientation No (0 pts) Intoxicated or Sedated No (0 pts) Impaired Gait No (0 pts) Mobility Assist Device Used No (0 pt) Altered Elimination No (0 pt) Score/Fall Risk Level 0 - 2 = Low Risk Oriented to surroundings, Maintained a safe environment, Educated pt \T\ family on fall prevention, incl call for assistance when getting out of bed. Abuse screen: Denies threats or abuse. Nutritional screening: No deficits noted. Tuberculosis screening: No symptoms or risk factors identified. Assessment: 17:05 General: Appears in no apparent distress. comfortable, Behavior is calm, cooperative, jb4 appropriate for age. Pain: Denies pain. Neuro: Level of Consciousness is awake, alert, obeys commands, Oriented to person, place, time, situation. Cardiovascular: Patient's skin is warm and dry. Respiratory: Airway is patent Respiratory effort is even, unlabored, Respiratory pattern is regular, symmetrical. Derm: Skin is intact, Skin is pink, warm \T\ dry. Musculoskeletal: Circulation, motion, and sensation intact. Range of motion: intact in all extremities. 18:05 Reassessment: Patient appears in no apparent distress at this time. Patient and/or jb4 family updated on plan of care and expected duration. Pain level reassessed. Patient is alert, oriented x 3, equal unlabored respirations, skin warm/dry/pink. 19:00 Reassessment: Patient appears in no apparent distress at this time. Patient and/or jb4 family updated on plan of care and expected duration. Pain level reassessed. Patient is alert, oriented x 3, equal unlabored respirations, skin warm/dry/pink. report give to JUNIOR Greene. 19:49 Reassessment: Patient denies pain at this time. General: Appears in no apparent ay distress. comfortable, Behavior is calm, cooperative. Pain: Denies pain. Neuro: Level of Consciousness is awake, alert, obeys commands, Oriented to person, place, time, situation. Cardiovascular: Denies chest pain, nausea, vomiting, Capillary refill < 3 seconds. Respiratory: Airway is patent Respiratory effort is even, unlabored, Respiratory pattern is regular, symmetrical. GI: No signs and/or symptoms were reported involving the gastrointestinal system. : No signs and/or symptoms were reported regarding the genitourinary system. Vital Signs: 17:18 BP 149 / 66; Pulse 75; Resp 16; Temp 97.7; Pulse Ox 93% on R/A; Weight 67.13 kg; Height ss 5 ft. 7 in. ; Pain 0/10; 18:54 BP 134 / 71; Pulse 68; Resp 16; Pulse Ox 96% on R/A; jb4 19:49 BP 149 / 72; Pulse 65; Resp 19; Temp 97.7; Pulse Ox 98% on R/A; ay 21:48 BP 156 / 76; Pulse 62; Resp 16; Pulse Ox 94% ; ay 17:18 Body Mass Index 23.18 (67.13 kg, 170.18 cm) ss 17:18 Pain Scale: Adult ss [place] Coma Score: 19:49 Eye Response: spontaneous(4). Motor Response: obeys commands(6). Verbal Response: ay oriented(5). Total: 15. ED Course: 17:00 Patient arrived in ED. im 17:00 Pri[facility] Ha [facility]-C [facility]. kb 17:00 Pedro Estevez MD is Attending Physician. kb 17:20 Triage completed. ss 17:20 Arm band placed on right wrist. ss 18:53 Rico Sibley, RN is Primary Nurse. jb4 19:49 IV is patent, is intact, Flushed right forearm. ay 21:49 IV discontinued, intact, bleeding controlled, No redness/swelling at site. Pressure ay dressing applied. Administered Medications: 18:34 Drug: Insulin Regular Human IVP 10 units IVP once {Co-Signature: jb4 (Rico Sibley RN).} Route: IVP; Site: right forearm; 20:00 Follow up: Response: No adverse reaction ay 18:37 Drug: NS 0.9% IV 1000 ml IV at 1000 ml once; to be given as a bolus over 60 minutes jb4 Route: IV; Rate: 1000 ml; Site: right forearm; 21:00 Follow up: Response: No adverse reaction; IV Status: Completed infusion ay 20:46 Drug: Insulin Regular Human Sub-Q 10 units Sub-Q once {Co-Signature: vc1 (alice Rojas RN).} Route: Sub-Q; Site: right lower abdomen; 20:55 Follow up: Response: No adverse reaction ay Outcome: 21:32 Discharge ordered by MD. kb 21:49 Discharged to home ambulatory, ay 21:49 Condition: stable 21:49 Discharge instructions given to patient, Instructed on follow up and referral plans. Demonstrated understanding of instructions, follow-up care, 21:50 Patient left the ED. ay Signatures: Priya Ha FNP-C FNP-Ckb Blanchard, Shelby, RN RN ss Bryson, James, JUNIOR RN jb4 Molly Lr Jc Branch RN RN ay Bryson, James RN jb4 Calcote, Vanessa RN vc1
--- NOTE | 2024-06-03 21:33 | EDPHYS ---
Physician Documentation [facility] Name: Claire Baker Age: 78 yrs Sex: Female : 1945 Arrival Date: 06/03/2024 Time: 16:56 Bed 18 Private MD: ED Physician Pedro Estevez HPI: 06/03 17:13 This 78 yrs old Female presents to ER via Unassigned with complaints of High Blood kb Sugar. 17:13 Pt is a 78 year old female who presents for high blood sugar. reports she got a kb new pump and he doesn't think it is working correctly. 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 states pts BGL was in the 600s a couple of weeks ago while they were on a cruise as well so he is concerned. Reports her sugar was 200-300 this morning. Pt denies any symptoms/complaints. Historical: - Allergies: 17:20 Bactrim; ss 17:20 Cephalexin Monohydrate; ss 17:20 Codeine; ss 17:20 PENICILLINS; ss 17:20 Sulfa (Sulfonamide Antibiotics); ss - PMHx: 17:20 Hypothyroidism; Hypertension; Hyperlipidemia; High Cholesterol; Diabetes - IDDM; ss - Infectious Disease History:: Denies. - Social history:: Smoking status: Patient denies any tobacco usage or history of. ROS: 17:14 Constitutional: As per HPI kb Exam: 17:14 Constitutional: This is a well developed, well nourished patient who is awake, alert, kb and in no acute distress. Head/Face: Normocephalic, atraumatic. ENT: Moist Mucous membranes Cardiovascular: Regular rate Respiratory: Respirations even and unlabored. No increased work of breathing. Talking in full sentences Abdomen/GI: Soft, non-tender. No distention Skin: Warm, dry with normal turgor. Normal color. MS/ Extremity: Pulses equal, no cyanosis. Neurovascular intact. Full, normal range of motion. Neuro: Awake and alert, GCS 15, oriented to person, place, time, and situation. Vital Signs: 17:18 BP 149 / 66; Pulse 75; Resp 16; Temp 97.7; Pulse Ox 93% on R/A; Weight 67.13 kg; Height ss 5 ft. 7 in. ; Pain 0/10; 18:54 BP 134 / 71; Pulse 68; Resp 16; Pulse Ox 96% on R/A; jb4 19:49 BP 149 / 72; Pulse 65; Resp 19; Temp 97.7; Pulse Ox 98% on R/A; ay 21:48 BP 156 / 76; Pulse 62; Resp 16; Pulse Ox 94% ; ay 17:18 Body Mass Index 23.18 (67.13 kg, 170.18 cm) ss 17:18 Pain Scale: Adult ss [place] Coma Score: 19:49 Eye Response: spontaneous(4). Motor Response: obeys commands(6). Verbal Response: ay oriented(5). Total: 15. MDM: 17:00 Medical Screening Exam initiated kb 17:15 Differential diagnosis: DKA, hyperglycemia. Data reviewed: vital signs, nurses notes. kb Historians other than the Patient: Spouse/Significant Other: . 20:01 Counseling: I had a detailed discussion with the patient and/or guardian regarding the kb historical points, exam findings, and any diagnostic results supporting the discharge/admit diagnosis, lab results, the need for outpatient follow up, a family practitioner, to return to the emergency department if symptoms worsen or persist or if there are any questions or concerns that arise at home. 06/03 17:08 Order name: CBC with Diff; Complete Time: 17:32 kb 06/03 17:08 Order name: CMP; Complete Time: 17:53 kb 06/03 17:25 Order name: Glucose, Ancillary Testing; Complete Time: 17:27 EDLA 06/03 19:53 Order name: Glucose, Ancillary Testing; Complete Time: 20:01 EDLA 06/03 19:55 Order name: Glucose, Ancillary Testing EDLA 06/03 21:44 Order name: Glucose, Ancillary Testing EDLA 06/03 17:08 Order name: IV Start; Complete Time: 18:50 kb 06/03 19:11 Order name: Blood Glucose Level; Complete Time: 20:49 kb 06/03 21:28 Order name: Blood Glucose Level kb Administered Medications: 18:34 Drug: Insulin Regular Human IVP 10 units IVP once {Co-Signature: jb4 (Rico Sibley RN).} Route: IVP; Site: right forearm; 20:00 Follow up: Response: No adverse reaction ay 18:37 Drug: NS 0.9% IV 1000 ml IV at 1000 ml once; to be given as a bolus over 60 minutes jb4 Route: IV; Rate: 1000 ml; Site: right forearm; 21:00 Follow up: Response: No adverse reaction; IV Status: Completed infusion ay 20:46 Drug: Insulin Regular Human Sub-Q 10 units Sub-Q once {Co-Signature: vc1 (alice Rojas RN).} Route: Sub-Q; Site: right lower abdomen; 20:55 Follow up: Response: No adverse reaction ay Disposition Summary: 06/03/24 21:32 Discharge Ordered Notes: Location: Home kb Condition: Stable kb Diagnosis - Hyperglycemia, unspecified kb Followup: kb - With: Emergency Department - When: As needed - Reason: Worsening of condition Followup: kb - With: Private Physician - When: 2 - 3 days - Reason: Recheck today's complaints, Continuance of care, Re-evaluation by your physician Discharge Instructions: - Discharge Summary Sheet kb - Hyperglycemia, [id number] kb Forms: - Medication Reconciliation Form kb - Antibiotic Education kb - Prescription Opioid Use kb - Patient Portal Instructions kb - Leadership Thank You Letter kb Signatures: Dispatcher [employer] Priya Hernandez, FLOOR INSPECTOR-C FLOOR INSPECTOR-Ckb Milagros Guzman RN Rico Peters, RN RN jb4 Jc Branch RN RN ay Bryson, James RN jb4 Araseli Rojas RN vc1
[2024-06-03 21:55] VITALS: TEMP 97.7
[2024-06-03 22:00] VITALS: BP 156/76; O2SAT 94
== END 2024-06-03 21:50 | disposition home or self-care (01) ==
LOC: ER 16:56
DX: E11.65 Type 2 diabetes mellitus with hyperglycemia (principal); I10 Essential (primary) hypertension; E78.5 Hyperlipidemia, unspecified; E03.9 Hypothyroidism, unspecified; Z88.0 Allergy status to penicillin; Z88.1 Allergy status to other antibiotic agents; Z88.2 Allergy status to sulfonamides; Z88.5 Allergy status to narcotic agent
CPT/HCPCS: 85025; 36415; 82947 ×3; 80053; J1815 ×2; J7030

== ENCOUNTER 2024-06-06 17:03 | Emergency (ER) | payer OTHER ==
--- NOTE | 2024-06-06 20:07 | EDPHYS ---
Physician Documentation [facility] Name: Claire Baker Age: 78 yrs Sex: Female : 1945 Arrival Date: 06/06/2024 Time: 17:03 Bed [id number] Private MD: ED Physician Frederick Lancaster HPI: 06/06 17:25 This 78 yrs old Female presents to ER via Ambulatory with complaints of High Blood rn Sugar. 17:25 The patient or guardian reports hyperglycemia. Onset: The symptoms/episode rn began/occurred 2 day(s) ago. Current symptoms: In the emergency department the patient's symptoms are unchanged from the initial presentation. The patient has experienced similar episodes in the past. Patient reports has been using insulin pump until recently, feels like pump was not working or broken and switched to manual administration of insulin as well as manual glucose testing. Patient seen here 2 days ago for hyperglycemia, discharged. Spouse reports glucose has not gone under 200 since then. Reports increased thirst and generalized weakness. Patient reports glucose check today was already near 500 and decided to drink alcohol after that. Patient reports high blood sugar likely secondary to poor diet as well as not taking insulin as well as the pump was administering it. Historical: - Allergies: 17:13 Bactrim; ld1 17:13 Cephalexin Monohydrate; ld1 17:13 Codeine; ld1 17:13 PENICILLINS; ld1 17:13 Sulfa (Sulfonamide Antibiotics); ld1 - PMHx: 17:13 High Cholesterol; Hyperlipidemia; Diabetes - IDDM; Hypertension; Hypothyroidism; ld1 - Immunization history:: Adult Immunizations up to date. - Infectious Disease History:: Denies. - Social history:: Smoking status: Patient denies any tobacco usage or history of. - Family history:: not pertinent. - Hospitalizations: : No recent hospitalization is reported. ROS: 17:25 Constitutional: Negative for fever, chills, and weight loss, Cardiovascular: Negative rn for chest pain, palpitations, and edema, Respiratory: Negative for shortness of breath, cough, wheezing, and pleuritic chest pain, Abdomen/GI: Negative for abdominal pain, nausea, vomiting, diarrhea, and constipation, MS/Extremity: Negative for injury and deformity, Skin: Negative for injury, rash, and discoloration, Neuro: Positive for generalized weakness and malaise Exam: 17:25 Constitutional: This is a well developed, well nourished patient who is awake, alert, rn and in no acute distress. Cardiovascular: Regular rate and rhythm. No pulse deficits. Respiratory: No increased work of breathing, no retractions or nasal flaring. Abdomen/GI: Soft, non-tender MS/ Extremity: Pulses equal, no cyanosis. Neuro: Awake and alert, GCS 15 Vital Signs: 17:13 BP 130 / 71; Pulse 64; Resp 18; Temp 97.2(O); Pulse Ox 100% on R/A; Weight 68.49 kg; ld1 Height 5 ft. 7 in. ; Pain 0/10; 17:13 Body Mass Index 23.65 (68.49 kg, 170.18 cm) ld1 17:13 Pain Scale: Adult ld1 MDM: 17:06 Medical Screening Exam initiated rn 06/06 17:29 Order name: Glucose, Ancillary Testing; Complete Time: 18:11 EDAL 06/06 17:22 Order name: IV Start rn 06/06 17:22 Order name: Glucose Level rn Administered Medications: No medications were administered Disposition Summary: 06/06/24 20:06 Eloped Notes: Disposition: after being seen by provider bm8 Reason: wait time bm8 Signatures: Dispatcher [employer] EDMS Frederick Lancaster MD MD rn Sims, Lauren, RN RN ld1 Antione Hinton RN RN bm8
--- NOTE | 2024-06-06 20:07 | ER ---
Nurse's Notes [facility] Name: Claire Baker Age: 78 yrs Sex: Female : 1945 Arrival Date: 06/06/2024 Time: 17:03 Bed IW9 Private MD: Diagnosis: Presentation: 06/06 17:13 Chief complaint: Patient states: 3 episodes of BGL over 500 today. Took insulin - BGL ld1 was down to 462. Denies N/V. Coronavirus screen: At this time, the client does not indicate any symptoms associated with coronavirus-19. Ebola Screen: No symptoms or risks identified at this time. Initial Sepsis Screen: Does the patient meet any 2 criteria? No. Patient's initial sepsis screen is negative. Does the patient have a suspected source of infection? No. Patient's initial sepsis screen is negative. Risk Assessment: Do you want to hurt yourself or someone else? Patient reports no desire to harm self or others. Onset of symptoms was June 06, 2024 at 17:15. 17:13 Method Of Arrival: Ambulatory ld1 17:13 Acuity: VIJAY 2 ld1 Triage Assessment: 17:13 General: Appears in no apparent distress. comfortable, Behavior is calm, cooperative, ld1 appropriate for age. Pain: Denies pain. EENT: No signs and/or symptoms were reported regarding the EENT system. Neuro: Level of Consciousness is awake, alert, obeys commands, Oriented to person, place, time, situation. Cardiovascular: Capillary refill < 3 seconds Patient's skin is warm and dry. Respiratory: Airway is patent Respiratory effort is even, unlabored. GI: Abdomen is flat, non-distended. : No signs and/or symptoms were reported regarding the genitourinary system. Derm: No signs and/or symptoms reported regarding the dermatologic system. Musculoskeletal: No signs and/or symptoms reported regarding the musculoskeletal system. Historical: - Allergies: 17:13 Bactrim; ld1 17:13 Cephalexin Monohydrate; ld1 17:13 Codeine; ld1 17:13 PENICILLINS; ld1 17:13 Sulfa (Sulfonamide Antibiotics); ld1 - PMHx: 17:13 High Cholesterol; Hyperlipidemia; Diabetes - IDDM; Hypertension; Hypothyroidism; ld1 - Immunization history:: Adult Immunizations up to date. - Infectious Disease History:: Denies. - Social history:: Smoking status: Patient denies any tobacco usage or history of. - Family history:: not pertinent. - Hospitalizations: : No recent hospitalization is reported. Assessment: 19:13 Reassessment: called to go back, no answer. bm8 19:51 Reassessment: called to go back, no answer pt eloped. bm8 Vital Signs: 17:13 BP 130 / 71; Pulse 64; Resp 18; Temp 97.2(O); Pulse Ox 100% on R/A; Weight 68.49 kg; ld1 Height 5 ft. 7 in. ; Pain 0/10; 17:13 Body Mass Index 23.65 (68.49 kg, 170.18 cm) ld1 17:13 Pain Scale: Adult ld1 ED Course: 17:06 Patient arrived in ED. mr 17:06 Frederick Lancaster MD is Attending Physician. rn 17:13 Arm band placed on right wrist. ld1 17:15 Triage completed. ld1 19:48 Kishor Mancini, RN is Primary Nurse. rg5 Administered Medications: No medications were administered Outcome: 19:51 Eloped from waiting room, after seeing physician Time discovered patient gone: June bm8 2024 at 19:51 19:51 Condition: stable bm8 19:51 Instructed on pt eloped no instructions given 20:06 Patient left the ED. bm8 Signatures: Kari Prieto, Reg Reg mr Frederick Lancaster MD MD rn Sims, Lauren, RN RN ld1 Antione Hinton RN RN 8 Kishor Mancini, JUNIOR RN rg5
[2024-06-06 20:32] VITALS: BP 130/71; TEMP 97.2; O2SAT 100
== END 2024-06-06 20:06 | disposition left against medical advice (07) ==
LOC: ER 17:03
DX: R53.1 Weakness (principal); R53.81 Other malaise; E11.9 Type 2 diabetes mellitus without complications; Z96.41 Presence of insulin pump (external) (internal)
CPT/HCPCS: 82947

== ENCOUNTER 2024-07-28 14:58 | Inpatient (IN) | payer OTHER ==
--- NOTE | 2024-07-28 15:52 | RAD REPORT ---
EXAMINATION: ONE VIEW CHEST XR CLINICAL INDICATION: Female, 78 years old.,COUGH TECHNIQUE: Frontal chest projection is submitted. Examination is limited by patient positioning and t echnique. COMPARISON: 04/07/2023 FINDINGS: Feeding left basilar hazy airspace opacity and mild right infrahilar streaky opacity. No pneumothora x or sizable effusion. The heart is normal in size. Mediastinal contours are unremarkable. IMPRESSION: Developing opacities as above, could reflect early pneumonia.
[2024-07-28] MEDS ORDERED: NA CHLORIDE 0.9% 1,000 ML ONE (16:08)
[2024-07-28] MEDS ORDERED: FOLIC ACID 5 MG/ML VIAL ONE (16:08)
[2024-07-28 16:13] LABS: Absolute Eosinophils 0.2 K/uL (0-0.5); Absolute Lymphocytes (CBC) 1.3 K/uL (0.7-4.9); Absolute Monocytes 0.4 K/uL (0.1-1.3); Absolute Neutrophil 3.3 K/uL (1.8-8.0); Basophils % 0.9 % (0-1.3); Eosinophils % 2.9 % (0-4.4); Hematocrit 42.7 % (36.0-45.0); Hemoglobin 14.5 g/dL (12.0-15.0); Lymphocytes % 24.8 % (15.3-44.8); MCH 32.3 pg (27.0-35.0); MCHC 34.1 g/dL (32.0-36.0); MCV 94.8 fL (80-100); MPV 7.9 fL (7.6-11.3); Monocytes % 7.9 % (3.3-12.3); Neutrophils % 63.5 % (41.7-73.7); Nucleated Red Blood Cells % 0.1 % (0-0); Platelets 255 thou/uL (152-406); Red Cell Distribution Width 13.6 % (12.1-15.2)
[2024-07-28 16:16] LABS: PT Prothrombin Time 11.2 SECONDS (10-13.0); Protime INR 0.98; Specific Gravity 1.006 (1.005-1.030); Urine Bilirubin NEGATIVE (Negative); Urine Blood Negative (Negative); Urine Clarity Clear (Clear); Urine Color Colorless (Yellow); Urine Glucose 4+ (Over) (Negative); Urine Ketones NEGATIVE (Negative); Urine Microscopic Reflex YN NO UMIC; Urine Nitrite NEGATIVE (Negative); Urine Protein NEGATIVE (Negative); Urine Urobilinogen Normal (Normal)
--- NOTE | 2024-07-28 16:37 | RAD REPORT ---
EXAM: CT Head Brain Wo Cont HISTORY: CONFUSED COMPARISON: Brain MRI 03/28/2024 TECHNIQUE: Multiple contiguous axial images were obtained for a CT of the brain without contrast. Sag ittal and coronal reformats were performed. One or more of the following dose reduction techniques were used: Automated exposure control, adjus tment of the mA and kV according to patient size, and iterative reconstruction. Unless otherwise specified, incidental findings do not require dedicated imaging follow-up. FINDINGS: No evidence of hydrocephalus, intracranial hemorrhage, or extra-axial fluid collection. Stable encephalomalacia with adjacent gliosis involving the right occipital lobe, suggesting sequelae of remote ischemia. Otherwise Mild brain atrophy with mild periventricular and nonspecific deep white matter chronic microvascular ischemic changes present. The calvarium is intact. The visualized paranasal sinuses and mastoid air cells are essentially clear . IMPRESSION: No evidence of acute intracranial abnormality. Chronic findings as above.
--- NOTE | 2024-07-28 16:45 | ER ---
Nurse's Notes [facility] Name: Claire Baker Age: 78 yrs Sex: Female : 1945 Arrival Date: 07/28/2024 Time: 14:58 Bed 13 Private MD: Diagnosis: Altered mental status, unspecified;Dementia in other diseases classified elsewhere without behavioral disturbance;Type 1 diabetes mellitus with hyperglycemia Presentation: 07/28 15:22 Chief complaint: EMS states: Altered mental status that has been ongoing. Family cm10 reports that this episode began at 0700 with increased agitation. Pt A\T\O to self and place. Pt cooperative during triage. Family reports that patient has not been taking her diabetes meds. Coronavirus screen: Client denies travel out of the [place] in the last 14 days. Ebola Screen: Patient denies travel to an Ebola-affected area in the 21 days before illness onset. Initial Sepsis Screen: Does the patient meet any 2 criteria? No. Patient's initial sepsis screen is negative. Does the patient have a suspected source of infection? No. Patient's initial sepsis screen is negative. Risk Assessment: Do you want to hurt yourself or someone else? Patient reports no desire to harm self or others. Onset of symptoms is unknown. Care prior to arrival: Glucose check: 435. 15:22 Method Of Arrival: EMS: [facility] 15:22 Acuity: VIJAY 3 cm10 Triage Assessment: 15:25 General: Appears in no apparent distress. comfortable, Behavior is calm, cooperative. cm10 Pain: Denies pain. Neuro: No deficits noted. Level of Consciousness is awake, obeys commands, confused, Oriented to person, place. Cardiovascular: No deficits noted. Patient's skin is warm and dry. Respiratory: No deficits noted. Airway is patent Respiratory effort is even, unlabored, Respiratory pattern is regular, symmetrical. Historical: - Allergies: 15:25 Bactrim; cm10 15:25 Cephalexin Monohydrate; cm10 15:25 Codeine; cm10 15:25 PENICILLINS; cm10 15:25 Sulfa (Sulfonamide Antibiotics); cm10 - PMHx: 15:25 Diabetes - IDDM; High Cholesterol; Hyperlipidemia; Hypertension; Hypothyroidism; cm10 Alzheimer's disease; - Immunization history:: Adult Immunizations unknown. - Infectious Disease History:: Denies. - Social history:: Smoking status: unknown. - Family history:: not pertinent. Screenin:30 [facility] ED Fall Risk Assessment (Adult) History of falling in the last 3 months, cm10 including since admission No falls in past 3 months (0 pts) Confusion or Disorientation Yes (5 pts) Intoxicated or Sedated No (0 pts) Impaired Gait Yes (1 pt) Mobility Assist Device Used No (0 pt) Altered Elimination Yes (1 pt) Score/Fall Risk Level 3 or more points = High Risk Oriented to surroundings, Maintained a safe environment, Hourly rounding (assess needs \T\ fall precautionary measures) done. Abuse screen: Denies threats or abuse. Denies injuries from another. Nutritional screening: No deficits noted. Tuberculosis screening: No symptoms or risk factors identified. Assessment: 16:00 Reassessment: Patient appears in no apparent distress at this time. No changes from cm10 previously documented assessment. 17:51 Reassessment: Pt agitated yelling at and at staff. Pt removed monitoring cm10 equipment. 19:00 Reassessment: Pt redirectable at this time and agrees to keep monitoring equipment on. cm10 Vital Signs: 15:22 BP 176 / 74; Pulse 63; Resp 17; Temp 96.5(A); Pulse Ox 98% on R/A; Weight 61.23 kg; cm10 Height 5 ft. 8 in. ; Pain 0/10; 16:30 BP 132 / 72; Pulse 63; Resp 18; Pulse Ox 100% ; cm10 17:30 BP 163 / 79; Pulse 71; Resp 15; Pulse Ox 100% ; cm10 18:00 BP 174 / 76; Pulse 67; Resp 15; Pulse Ox 100% ; cm10 19:00 BP 153 / 81; Pulse 71; Resp 15; Pulse Ox 100% ; cm10 19:35 BP 139 / 95; Pulse 71; Resp 15; Pulse Ox 100% ; cm10 15:22 Body Mass Index 20.53 (61.23 kg, 172.72 cm) cm10 15:22 Pain Scale: Adult cm10 ED Course: 15:07 Patient arrived in ED. eb 15:15 Oliver Vasquez MD is Attending Physician. getachew 15:22 Reena Garcia, JUNIOR is Primary Nurse. cm10 15:24 Triage completed. cm10 15:25 Arm band placed on right wrist. Patient placed in an exam room, on a stretcher. cm10 15:30 XRAY Chest (1 view) In Process Unspecified. EDMS 15:30 Patient has correct armband on for positive identification. Placed in gown. Bed in low cm10 position. Call light in reach. Side rails up X2. Client placed on continuous cardiac and pulse oximetry monitoring. NIBP monitoring applied. bank worker on. 15:33 CT Head Brain wo Cont In Process Unspecified. EDMS 16:00 Initial lab(s) drawn, by me, sent to lab. Urine collected: clean catch specimen, clear. cm10 Inserted saline lock: 20 gauge in right forearm, using aseptic technique. Blood collected. Flushed with 10 mL NS. 16:22 EKG done, by ED staff, reviewed by Oliver Vasquez MD. cm10 16:44 Meño Jha MD is Hospitalizing Provider. getachew 17:31 Inserted saline lock: 22 gauge in left forearm, using aseptic technique. Blood cm10 collected. Flushed with 10 mL NS. 19:38 Provided Education on: Need for admit. cm10 19:38 No provider procedures requiring assistance completed. Patient admitted, IV remains in cm10 place. Administered Medications: 16:22 Drug: NS 0.9% IV 1000 ml IV at 1000 ml once; to be given as a bolus over 60 minutes cm10 Route: IV; Rate: 1000 ml; Site: right forearm; 18:25 Follow up: Response: No adverse reaction; IV Status: Completed infusion; IV Intake: cm10 1000ml 16:22 Drug: foLIC Acid IVPB 1 mg IVPB once Route: IVPB; Site: right forearm; cm10 16:25 Follow up: Response: No adverse reaction; IV Status: Completed infusion; IV Intake: cm10 0.2ml 17:46 CANCELLED (Duplicate Order): [id number] mg 100 ml IVPB once over 60 mins getachew 17:51 Drug: Ativan IVP 1 mg IVP once Route: IVP; Site: left forearm; cm10 18:27 Follow up: Response: No adverse reaction cm10 17:56 Drug: Insulin Regular Human IVP 10 units IVP once {Co-Signature: ld1 (Alida Posadas cm10 RN).} Route: IVP; Site: right forearm; 18:27 Follow up: Response: No adverse reaction cm10 17:56 Not Given (Duplicate Order): insulin regular human5 units Sub-Q once cm10 17:57 Drug: Insulin Glargine Sub-Q 35 units Sub-Q once {Co-Signature: ld1 (Alida Posadas RN).} cm10 Route: Sub-Q; Site: abdomen; 18:27 Follow up: Response: No adverse reaction cm10 18:20 Not Given (Duplicate Order): [id number] mg PO once cm10 18:23 Drug: levofloxacin IVPB 500 mg 100 ml IVPB once over 60 mins Volume: 100 ml; Route: cm10 IVPB; Infused Over: 60 mins; Site: right forearm; 19:34 Follow up: Response: No adverse reaction; IV Status: Completed infusion; IV Intake: cm10 100ml Medication: 19:39 VIS not applicable for this client. cm10 Point of Care Testing: Blood Glucose: 19:35 Blood Glucose: 291 mg/dL; cm10 Ranges: Intake: 16:25 IV: 0ml; Total: 0ml. cm10 18:25 IV: 1000ml; Total: 1000ml. cm10 19:34 IV: 100ml; Total: 1100ml. cm10 Outcome: 16:45 Decision to Hospitalize by Provider. [facility] [place] 19:39 Admitted to Tele accompanied by nurse, via wheelchair, room 425, cm10 19:39 Condition: good 19:39 Instructed on the need for admit, 19:39 Patient left the ED. cm10 Signatures: Dispatcher [employer] Oliver Granados MD MD cha Botello, Elizabeth eb Martinez, Clarissa, RN RN cm10 Alida Posadas RN ld1
--- NOTE | 2024-07-28 16:45 | EDPHYS ---
Physician Documentation [facility] Name: Claire Baker Age: 78 yrs Sex: Female : 1945 Arrival Date: 07/28/2024 Time: 14:58 Bed 13 Private MD: ED Physician Oliver Vasquez HPI: 07/28 16:38 This 78 yrs old Female presents to ER via EMS with complaints of Altered getachew Mental Status. 16:38 The patient presents with confusion, trouble concentrating. Onset: The symptoms/episode getachew began/occurred 3 day(s) ago. Possible causes: drug use, alcohol, head injury, low blood sugar, seizure, sepsis. Associated signs and symptoms: The patient has no apparent associated signs or symptoms. Patient's baseline: Neuro: alert and fully oriented. The patient has experienced similar episodes in the past, a few times. hx dementia. Historical: - Allergies: 15:25 Bactrim; cm10 15:25 Cephalexin Monohydrate; cm10 15:25 Codeine; cm10 15:25 PENICILLINS; cm10 15:25 Sulfa (Sulfonamide Antibiotics); cm10 - PMHx: 15:25 Diabetes - IDDM; High Cholesterol; Hyperlipidemia; Hypertension; Hypothyroidism; cm10 Alzheimer's disease; - Immunization history:: Adult Immunizations unknown. - Infectious Disease History:: Denies. - Social history:: Smoking status: unknown. - Family history:: not pertinent. ROS: 16:38 Constitutional: Negative for fever, chills, and weight loss, Eyes: Negative for injury, getachew pain, redness, and discharge, ENT: Negative for injury, pain, and discharge, Neck: Negative for injury, pain, and swelling, Cardiovascular: Negative for chest pain, palpitations, and edema, Respiratory: Negative for shortness of breath, cough, wheezing, and pleuritic chest pain, Abdomen/GI: Negative for abdominal pain, nausea, vomiting, diarrhea, and constipation, Back: Negative for injury and pain, : Negative for injury, bleeding, discharge, and swelling, MS/Extremity: Negative for injury and deformity, Skin: Negative for injury, rash, and discoloration, Psych: Negative for depression, anxiety, suicide ideation, homicidal ideation, and hallucinations, Allergy/Immunology: Negative for hives, rash, and allergies, Endocrine: Negative for neck swelling, polydipsia, polyuria, polyphagia, and marked weight changes, Hematologic/Lymphatic: Negative for swollen nodes, abnormal bleeding, and unusual bruising, 16:38 Neuro: Positive for altered mental status, weakness, Exam: 16:38 Constitutional: This is a well developed, well nourished patient who is awake, alert, getachew and in no acute distress. Head/Face: Normocephalic, atraumatic. Eyes: Pupils equal round and reactive to light, extra-ocular motions intact. Lids and lashes normal. Conjunctiva and sclera are non-icteric and not injected. Cornea within normal limits. Periorbital areas with no swelling, redness, or edema. ENT: Nares patent. No nasal discharge, no septal abnormalities noted. Tympanic membranes are normal and external auditory canals are clear. Oropharynx with no redness, swelling, or masses, exudates, or evidence of obstruction, uvula midline. Mucous membranes moist. Neck: Trachea midline, no thyromegaly or masses palpated, and no cervical lymphadenopathy. Supple, full range of motion without nuchal rigidity, or vertebral point tenderness. No Meningismus. Chest/axilla: Normal chest wall appearance and motion. Nontender with no deformity. No lesions are appreciated. Cardiovascular: Regular rate and rhythm with a normal S1 and S2. No gallops, murmurs, or rubs. Normal PMI, no JVD. No pulse deficits. Respiratory: Lungs have equal breath sounds bilaterally, clear to auscultation and percussion. No rales, rhonchi or wheezes noted. No increased work of breathing, no retractions or nasal flaring. Abdomen/GI: Soft, non-tender, with normal bowel sounds. No distension or tympany. No guarding or rebound. No evidence of tenderness throughout. Back: No spinal tenderness. No costovertebral tenderness. Full range of motion. Female : Normal external genitalia. Skin: Warm, dry with normal turgor. Normal color with no rashes, no lesions, and no evidence of cellulitis. MS/ Extremity: Pulses equal, no cyanosis. Neurovascular intact. Full, normal range of motion., bilateral aka Neuro: Awake and alert, GCS 15, oriented to person, place, time, and situation. Cranial nerves II-XII grossly intact. Motor strength 5/5 in all extremities. Sensory grossly intact. Cerebellar exam normal. Normal gait. Psych: Awake, alert, with orientation to person, place and time. Behavior, mood, and affect are within normal limits. 16:38 ECG was reviewed by the Attending Physician. Vital Signs: 15:22 BP 176 / 74; Pulse 63; Resp 17; Temp 96.5(A); Pulse Ox 98% on R/A; Weight 61.23 kg; cm10 Height 5 ft. 8 in. ; Pain 0/10; 16:30 BP 132 / 72; Pulse 63; Resp 18; Pulse Ox 100% ; cm10 17:30 BP 163 / 79; Pulse 71; Resp 15; Pulse Ox 100% ; cm10 18:00 BP 174 / 76; Pulse 67; Resp 15; Pulse Ox 100% ; cm10 19:00 BP 153 / 81; Pulse 71; Resp 15; Pulse Ox 100% ; cm10 19:35 BP 139 / 95; Pulse 71; Resp 15; Pulse Ox 100% ; cm10 15:22 Body Mass Index 20.53 (61.23 kg, 172.72 cm) cm10 15:22 Pain Scale: Adult cm10 MDM: 15:15 Medical Screening Exam initiated getachew 16:41 Differential Diagnosis: CVA, electrolyte abnormality, hypoglycemia, intracranial bleed, getachew meningitis, overdose, pneumonia, seizure, sepsis, TIA, UTI, volume depletion. Data reviewed: vital signs, nurses notes, EMS record, lab test result(s), EKG, radiologic studies, CT scan, plain films. Consideration of Admission/Observation Patient was admitted/placed on observation. Escalation of care including admission/observation considered. I considered the following discharge prescriptions or medication management in the emergency department Medications were administered in the Emergency Department. See MAR. Test considered but Not performed: MRI: no mri brain. Historians other than the Patient: Spouse/Significant Other: well informed. Care significantly affected by the following chronic conditions: Diabetes, Hypertension, hypothyroid dementia. Counseling: I had a detailed discussion with the patient and/or guardian regarding the historical points, exam findings, and any diagnostic results supporting the discharge/admit diagnosis, lab results, radiology results, the need for further work-up and treatment in the hospital. 07/28 15:17 Order name: Basic Metabolic Panel [facility] 07/28 15:17 Order name: CBC with Diff; Complete Time: 16:42 [facility] 07/28 15:17 Order name: LFT's [facility] 07/28 15:17 Order name: Magnesium [facility] 07/28 15:17 Order name: NT PRO-BNP [facility] 07/28 15:17 Order name: PT-INR; Complete Time: 16:43 [facility] 07/28 15:17 Order name: Troponin HS [facility] 07/28 15:17 Order name: Lipase [facility] 07/28 15:17 Order name: Urinalysis w/ reflexes; Complete Time: 16:42 [facility] 07/28 15:17 Order name: TSH [facility] 07/28 16:44 Order name: Blood Culture Adult (2) [facility] 07/28 17:06 Order name: T4 Free [facility] 07/28 17:53 Order name: Magnesium [facility] 07/28 17:53 Order name: Urinalysis w/ reflexes [facility] 07/28 17:53 Order name: CBC with Automated Diff [facility] 07/28 17:53 Order name: CBC with Automated Diff [facility] 07/28 17:53 Order name: Comprehensive Metabolic Panel [facility] 07/28 17:53 Order name: Comprehensive Metabolic Panel [facility] 07/28 18:05 Order name: Glucose, Ancillary Testing [facility] 07/28 15:17 Order name: XRAY Chest (1 view); Complete Time: 16:43 [facility] 07/28 15:17 Order name: CT Head Brain wo Cont; Complete Time: 16:43 [facility] 07/28 15:17 Order name: EKG; Complete Time: 15:18 [facility] 07/28 15:17 Order name: Cardiac monitoring; Complete Time: 16:22 [facility] 07/28 15:17 Order name: EKG - Nurse/Tech; Complete Time: 16:22 [facility] 07/28 15:17 Order name: IV Saline Lock; Complete Time: 16:23 [facility] 07/28 15:17 Order name: Labs collected and sent; Complete Time: 16:23 [facility] 07/28 15:17 Order name: O2 Per Protocol; Complete Time: 16:23 [facility] 07/28 15:17 Order name: O2 Sat Monitoring; Complete Time: 16:23 [facility] EC:38 Rate is 64 beats/min. Rhythm is regular. QRS [place] is Normal. PA interval is normal. QRS getachew interval is normal. QT interval is normal. No Q waves. T waves are Normal. No ST changes noted. Clinical impression: NSR w/ Non-specific ST/T Changes and No evidence of ischemia. Interpreted by me. Reviewed by me. Administered Medications: 16:22 Drug: NS 0.9% IV 1000 ml IV at 1000 ml once; to be given as a bolus over 60 minutes cm10 Route: IV; Rate: 1000 ml; Site: right forearm; 18:25 Follow up: Response: No adverse reaction; IV Status: Completed infusion; IV Intake: cm10 1000ml 16:22 Drug: foLIC Acid IVPB 1 mg IVPB once Route: IVPB; Site: right forearm; cm10 16:25 Follow up: Response: No adverse reaction; IV Status: Completed infusion; IV Intake: cm10 0.2ml 17:46 CANCELLED (Duplicate Order): [id number] mg 100 ml IVPB once over 60 mins getachew 17:51 Drug: Ativan IVP 1 mg IVP once Route: IVP; Site: left forearm; cm10 18:27 Follow up: Response: No adverse reaction cm10 17:56 Drug: Insulin Regular Human IVP 10 units IVP once {Co-Signature: serge (Alida Posadas RN).} Route: IVP; Site: right forearm; 18:27 Follow up: Response: No adverse reaction cm10 17:56 Not Given (Duplicate Order): insulin regular human5 units Sub-Q once cm10 17:57 Drug: Insulin Glargine Sub-Q 35 units Sub-Q once {Co-Signature: [email or web address] (Alida Posadas RN).} cm10 Route: Sub-Q; Site: abdomen; 18:27 Follow up: Response: No adverse reaction cm10 18:20 Not Given (Duplicate Order): [id number] mg PO once cm10 18:23 Drug: levofloxacin IVPB 500 mg 100 ml IVPB once over 60 mins Volume: 100 ml; Route: cm10 IVPB; Infused Over: 60 mins; Site: right forearm; 19:34 Follow up: Response: No adverse reaction; IV Status: Completed infusion; IV Intake: cm10 100ml Point of Care Testing: Blood Glucose: 19:35 Blood Glucose: 291 mg/dL; cm10 Ranges: Critical Glucose Levels:Adult <50 mg/dl or >400 mg/dl <40 mg/dl or >180 mg/dl Disposition Summary: 07/28/24 16:45 Hospitalization Ordered Notes: Hospitalization Status: Inpatient Admission getachew Provider: Meño Jha cha Location: Telemetry/MedSurg (Inpatient) getachew Condition: Fair getachew Problem: new getachew Symptoms: have improved getachew Bed/Room Type: Standard getachew Room Assignment: 402(07/28/24 18:03) eb Diagnosis - Altered mental status, unspecified getachew - Dementia in other diseases classified elsewhere without behavioral disturbance getachew - Type 1 diabetes mellitus with hyperglycemia getachew Forms: - Medication Reconciliation Form getachew - SBAR form getachew - Leadership Thank You Letter getachew Signatures: Dispatcher [employer] EDMS Oliver Vasquez MD MD cha Botello, Elizabeth eb Martinez, Clarissa RN RN cm10 PosadasAlida RN [email or web address] Corrections: (The following items were deleted from the chart) 15:18 15:18 BASIC METABOLIC PANEL+C.LAB.BRZ ordered. EDMS EDMS 15:18 15:18 CBC+H.LAB.BRZ ordered. EDMS EDMS 15:18 15:18 HEPATIC FUNCTION+C.LAB.BRZ ordered. EDMS EDMS 15:18 15:18 MAGNESIUM+C.LAB.BRZ ordered. EDMS EDMS 15:18 15:18 PROBNP+C.LAB.BRZ ordered. EDMS EDMS 15:18 15:18 PROTIME (+INR)+COAG.LAB.BRZ ordered. EDMS EDMS 15:18 15:18 Troponin High Sensitivity+C.LAB.BRZ ordered. EDMS EDMS 15:18 15:18 LIPASE+C.LAB.BRZ ordered. EDMS EDMS 15:18 15:18 Urinalysis+U.LAB.BRZ ordered. EDMS EDMS 15:18 15:18 THYROID STIMULAT HORMONE+C.LAB.BRZ ordered. EDMS EDMS 15:18 15:18 Head Brain Wo Cont+CT.RAD.BRZ ordered. EDMS EDMS 17:46 16:44 levofloxacin IVPB 500 mg 100 ml IVPB once over 60 mins ordered. getachew getachew 18:03 16:45 getachew eb
[2024-07-28 17:02] LABS: ALT/SGPT 34 U/L (13-56); AST/SGOT 25 U/L (15-37); Albumin 3.3 g/dL (3.4-5.0); Albumin/Globulin Ratio 0.8 (1.1-1.8); Alkaline Phosphatase 64 U/L (45-117); Anion Gap 13.8 mEq/L (5.0-15.0); BUN Blood Urea Nitrogen 14 mg/dL (7-18); Bicarbonate 23 mEq/L (21-32); Bilirubin Direct < 0.2 mg/dL (0-0.2); Bilirubin Indirect, Calculated 0.3 mg/dL (0.2-0.8); Bilirubin Total 0.5 mg/dL (0.2-1.0); Globulin 3.9 g/dL (2.3-3.5); Glomerular Filtration Rate 51 ml/min (=/>90); Lipase 58 U/L (13-75); Magnesium 2.3 mg/dL (1.6-2.4); NT PRO-BNP 169 pg/mL (<450); Potassium 3.8 mEq/L (3.5-5.1); Protein, Total 7.2 g/dL (6.4-8.2); Sodium Level 133 mEq/L (136-145)
[2024-07-28 17:03] LABS: Glucose Level 488 mg/dL (74-106)
[2024-07-28] MEDS ORDERED: INSULIN GLARGINE 100 UNIT/ML SQ ONE (17:38)
[2024-07-28] MEDS ORDERED: INSULIN REGULAR (HUMAN) 100 UNIT/ML ONE (17:39)
[2024-07-28] MEDS ORDERED: LORazepam 2 MG/ML VIAL ONE (17:47)
[2024-07-28] MEDS ORDERED: MAGNESIUM HYDROXIDE 8% 30 ML PO PRN (17:48)
[2024-07-28] MEDS ORDERED: ONDANSETRON 4 MG/2 ML VIAL IV PRN (17:48)
[2024-07-28] MEDS ORDERED: D10W 125 ML IV PRN (17:57)
[2024-07-28] MEDS ORDERED: GLUCAGON 1 MG/VIAL IM PRN (17:57)
--- NOTE | 2024-07-28 17:59 | P.HP ---
Patient History Date of Service: 07/28/24 Reason for admission: Acute metabolic encephalopathy History of Present Illness: 78-year-old with a past medical history of IDDM, hyperlipidemia, hypertension, hypothyroidism, Alzheimer's disease presenting with altered mental status. Her is at bedside and relates the story. He states that over the last 2 months she has started drinking more than she has ever had in her entire life. He believes her dementia has become more advanced he states that she is no longer taking her medications. Her insulin pump malfunctioned and he was giving her the insulin manually. However he believes that her behavior has been very erratic and very agitated towards him. He is concerned she is having a urinary tract infection. He was told by his PCP to bring her to the hospital for further evaluation. Allergies cephalexin monohydrate [From Keflex] Allergy (Intermediate, Verified 01/05/22 07:26) Itching/Hives/Rash codeine Allergy (Intermediate, Verified 01/05/22 07:26) Nausea/Vomiting Penicillins Allergy (Intermediate, Verified 01/05/22 07:26) Itching/Hives/Rash sulfamethoxazole [From Bactrim] Allergy (Intermediate, Verified 01/05/22 07:26) Itching/Hives/Rash trimethoprim [From Bactrim] Allergy (Intermediate, Verified 01/05/22 07:26) Itching/Hives/Rash latex Allergy (Verified 01/05/22 07:26) Itching/Hives/Rash Sulfa (Sulfonamide Antibiotics) Allergy (Verified 01/05/22 07:26) Itching/Hives/Rash Home Medications: Aspirin [Aspirin EC 81 MG] 81 mg PO DAILY 11/14/18 Atorvastatin Calcium [Lipitor] 40 mg PO BEDTIME 11/14/18 Biotin 5,000 mcg PO DAILY 11/14/18 Clopidogrel Bisulfate [Plavix] 75 mg PO DAILY 11/14/18 Docosahexanoic AC/Epa [Fish Oil 1,000 MG CAP] 1,000 mg PO BID 11/14/18 Empagliflozin [Jardiance] 25 mg PO DAILY 11/14/18 Escitalopram [Lexapro] 20 mg PO DAILY 11/14/18 Fenofibrate [Tricor] 145 mg PO DAILY 11/14/18 Insulin Aspart [Novolog] 46 unit SQ DAILY 11/14/18 Insulin Degludec [Tresiba] 24 unit SQ DAILY 11/14/18 Lansoprazole 30 mg PO DAILY 11/14/18 Levothyroxine [Synthroid] 125 mcg PO [id number] 11/14/18 Liraglutide [Victoza 2-Tristen] 1.8 mg SQ DAILY 11/14/18 Metformin HCl [Metformin ER Osmotic] 1,000 mg PO BID 11/14/18 cycloSPORINE [Restasis] 1 drop EACH EYE BID 11/14/18 Ascorbic Acid [Vitamin C] 1,000 mg PO DAILY 01/02/22 Calcium Carbonate/Vitamin D3 [Calcium 600 mg-Vit D3 10Mcg Tb] 1 each PO SEECOM 01/02/22 Cholecalciferol (Vitamin D3) [Vitamin D3] 100 mcg PO DAILY 01/02/22 Docusate Sodium [Stool Softener] 200 mg PO DAILY 01/02/22 Losartan/Hydrochlorothiazide [Losartan-Hctz 100-25 mg Tab] 1 each PO BEDTIME 01/02/22 Magnesium Oxide [Magnesium] 500 mg PO DAILY 01/02/22 Multivit-Min/FA/Lycopen/Lutein [Adults 50 Plus Multivitamin] 1 each PO DAILY 01/02/22 Potassium Citrate [Potassium] 99 mg PO DAILY 01/02/22 Vitamin E (Dl,Tocopheryl Acet) [Vitamin E] 450 mg PO DAILY 01/02/22 Zinc Gluconate [Zinc] 50 mg PO DAILY 01/02/22 Review of Systems is unable to be obtained Physical Examination - Physical Exam General: Alert, In no apparent distress HEENT: Atraumatic, Normocephalic Neck: Supple Respiratory: Clear to auscultation bilaterally, Normal air movement Cardiovascular: No edema, Normal pulses Capillary refill: <2 Seconds Gastrointestinal: Normal bowel sounds Musculoskeletal: No clubbing, No swelling Integumentary: No rashes, No breakdown Neurological: Normal strength at 5/5 x4 extr Lymphatics: No axilla or inguinal lymphadenopathy - Studies Laboratory Data (last 24 hrs) 07/28/24 07/28/24 07/28/24 16:02 16:02 16:02 WBC 5.20 Hgb 14.5 Hct 42.7 Plt Count 255 PT 11.2 INR 0.98 Sodium 133 L Potassium 3.8 BUN 14 Creatinine 1.12 H Glucose 488 H* Magnesium 2.3 Total Bilirubin 0.5 AST 25 ALT 34 Alkaline Phosphatase 64 Lipase 58 Assessment and Plan - Plan Hypothyroidism Type 1 diabetes with hyperglycemia Alzheimer's disease Hyponatremia Elevated creatinine Admit to floor Severely elevated TSH level likely patient has not been taking medication due to longstanding dementia Restart Synthroid Start sliding scale insulin Continue IV fluid Redirect patient as needed Avoid sedatives Speech therapy consult DVT prophylaxis with SCDs - Advance Directives Does patient have a Living Will: Yes Does patient have a Durable POA for Healthcare: No
[2024-07-28] MEDS ORDERED: Levofloxacin 750mg IV 750 MG/150 ML BAG IV ONE (18:17)
[2024-07-28] MEDS: ATORVASTATIN 40 MG TAB PO SCH (20:38)
[2024-07-28] MEDS: INSULIN REGULAR (HUMAN) 100 UNIT/ML SQ SCH (20:38)
[2024-07-28] MEDS: NA CHLORIDE 0.9% 1,000 ML IV SCH (20:41)
[2024-07-28 23:34] VITALS: BMI 21.1
[2024-07-28] MEDS: DONEPEZIL HCL 5 MG TAB PO SCH (23:42)
[2024-07-29] MEDS: LEVOTHYROXINE SOD 0.125 MG TAB PO SCH (06:17)
[2024-07-29 06:27] LABS: Absolute Basophils 0.1 K/uL (0-0.5); Absolute Eosinophils 0.2 K/uL (0-0.5); Absolute Lymphocytes (CBC) 1.3 K/uL (0.7-4.9); Absolute Monocytes 0.5 K/uL (0.1-1.3); Absolute Neutrophil 2.7 K/uL (1.8-8.0); Basophils % 1.1 % (0-1.3); Eosinophils % 5.2 % (0-4.4); Hematocrit 37.7 % (36.0-45.0); Hemoglobin 13.3 g/dL (12.0-15.0); Lymphocytes % 28.2 % (15.3-44.8); MCH 32.6 pg (27.0-35.0); MCHC 35.2 g/dL (32.0-36.0); MCV 92.6 fL (80-100); MPV 7.5 fL (7.6-11.3); Monocytes % 9.8 % (3.3-12.3); Neutrophils % 55.7 % (41.7-73.7); Nucleated Red Blood Cells % 0.2 % (0-0); Platelets 244 thou/uL (152-406); RBC Red Blood Cell Count 4.07 M/uL (3.86-4.86); Red Cell Distribution Width 13.4 % (12.1-15.2)
[2024-07-29 06:49] LABS: Albumin 2.8 g/dL (3.4-5.0); Albumin/Globulin Ratio 0.9 (1.1-1.8); Anion Gap 7.9 mEq/L (5.0-15.0); Bilirubin Total 0.4 mg/dL (0.2-1.0); Globulin 3.2 g/dL (2.3-3.5); Potassium 3.9 mEq/L (3.5-5.1)
[2024-07-29] MEDS: CLOPIDOGREL 75 MG TABLET PO SCH (09:18)
[2024-07-29] MEDS: POTASSIUM CL SA 10 MEQ TAB PO ONE (09:18)
--- NOTE | 2024-07-29 12:48 | P.PN ---
Date of Service: 07/29/24 Subjective: elevated blood pressures this morning. Wants to go home. at bedside. He states he has removed all the alcohol from the house. Review of Systems 10 point review of systems is otherwise negative Physical Examination - Physical Exam General: Alert, In no apparent distress HEENT: Atraumatic, Normocephalic Neck: Supple Respiratory: Clear to auscultation bilaterally, Normal air movement Cardiovascular: No edema, Normal pulses Capillary refill: <2 Seconds Gastrointestinal: Normal bowel sounds Musculoskeletal: No clubbing, No swelling Integumentary: No rashes, No breakdown Neurological: Normal strength at 5/5 x4 extr Lymphatics: No axilla or inguinal lymphadenopathy - Studies Laboratory Data (last 24 hrs) 07/28/24 07/28/24 07/28/24 16:02 16:02 16:02 WBC 5.20 Hgb 14.5 Hct 42.7 Plt Count 255 PT 11.2 INR 0.98 Sodium 133 L Potassium 3.8 BUN 14 Creatinine 1.12 H Glucose 488 H* Magnesium 2.3 Total Bilirubin 0.5 AST 25 ALT 34 Alkaline Phosphatase 64 Lipase 58 Assessment and Plan - Plan Hypothyroidism Acute metabolic encephalopathy Type 1 diabetes with hyperglycemia Alzheimer's disease Hyponatremia Elevated creatinine Admit to floor Metabolic encephalopathy resolving Restart thyroid medication, seems to be improved Continue sliding scale insulin Continue IV fluid Redirect patient as needed Avoid sedatives Advance diet to consistent carbohydrate restart lexapro restart jardiance restart hctz/losartan Consult physical therapy DVT prophylaxis with SCDs - Advance Directives Does patient have a Living Will: Yes Does patient have a Durable POA for Healthcare: No
[2024-07-29] MEDS: LABETALOL 20 MG/4ML SYRINGE IV ONE (17:18)
[2024-07-29] MEDS: HYDRALAZINE HCL 20 MG/ML VIAL IV ONE (19:34)
[2024-07-29] MEDS: LOSARTAN/HCTZ 50-12.5 PO SCH (20:35)
[2024-07-29] MEDS ORDERED: HOME MED 1 EA UNK (Losartan/Hydrochlorothiazide [Losartan-Hctz 100-25 Mg Tab] 1 EACH Table PO SCH (21:00)
[2024-07-30] MEDS: ACETAMINOPHEN 325 MG TABLET PO PRN (01:44)
[2024-07-30] MEDS: ESCITALOPRAM 20 MG TAB PO SCH (08:26)
[2024-07-30] MEDS: Empagliflozin [Jardiance] 25 MG Tablet *PT OWN MED PO SCH (08:26)
--- NOTE | 2024-07-30 10:16 | P.DS ---
Admission Date: 07/28/24 Discharge Date: 07/30/24 Disposition: ROUTINE DISCHARGE Discharge Condition: GOOD Reason for Admission: Acute metabolic encephalopathy Brief History of Present Illness: 78-year-old with a past medical history of IDDM, hyperlipidemia, hypertension, hypothyroidism, Alzheimer's disease presenting with altered mental status. Her is at bedside and relates the story. He states that over the last 2 months she has started drinking more than she has ever had in her entire life. He believes her dementia has become more advanced he states that she is no longer taking her medications. Her insulin pump malfunctioned and he was giving her the insulin manually. However he believes that her behavior has been very erratic and very agitated towards him. He is concerned she is having a urinary tract infection. He was told by his PCP to bring her to the hospital for further evaluation. Hospital Course: 78-year-old female presenting with acute metabolic encephalopathy found to have acute metabolic encephalopathy secondary to hyperglycemia alongside uncontrolled hypothyroidism with superimposed Alzheimer's disease. She was given IV fluid and restarted on home medication. Her clinical condition improved during the course of her stay. Her has remained at her side during this time. He will follow-up with her PCP upon discharge. We discussed taking the Synthroid early in the morning prior to taking her other medications or having her breakfast meal. He is in agreement with plan and feels she is back to her baseline levels. She is medically optimized for discharge Vital Signs/Physical Exam: Temp Pulse Resp BP Pulse Ox 97.6 F 69 18 185/86 H 100 07/30/24 08:00 07/30/24 08:25 07/30/24 08:00 07/30/24 08:25 07/30/24 08:00 Laboratory Data at Discharge: WBC 4.80 thou/uL (4.3-10.9) 07/29/24 06:10 Hgb 13.3 g/dL (12.0-15.0) D 07/29/24 06:10 Hct 37.7 % (36.0-45.0) 07/29/24 06:10 Plt Count 244 thou/uL (152-406) 07/29/24 06:10 PT 11.2 SECONDS (10-13.0) 07/28/24 16:02 INR 0.98 07/28/24 16:02 Sodium 140 mEq/L (136-145) D 07/29/24 06:10 Potassium 3.9 mEq/L (3.5-5.1) 07/29/24 06:10 BUN 11 mg/dL (7-18) 07/29/24 06:10 Creatinine 0.76 mg/dL (0.55-1.02) 07/29/24 06:10 Glucose 156 mg/dL (74-106) H 07/29/24 06:10 Magnesium 2.0 mg/dL (1.6-2.4) 07/29/24 06:10 Total Bilirubin 0.4 mg/dL (0.2-1.0) 07/29/24 06:10 AST 22 U/L (15-37) 07/29/24 06:10 ALT 27 U/L (13-56) 07/29/24 06:10 Alkaline Phosphatase 52 U/L (45-117) 07/29/24 06:10 Lipase 58 U/L (13-75) 07/28/24 16:02 Home Medications: Aspirin [Aspirin EC 81 MG] 81 mg PO DAILY 11/14/18 Atorvastatin Calcium [Lipitor] 40 mg PO BEDTIME 11/14/18 Biotin 5,000 mcg PO DAILY 11/14/18 Clopidogrel Bisulfate [Plavix*] 75 mg PO DAILY 11/14/18 Docosahexanoic AC/Epa [Fish Oil 1,000 MG*] 1,000 mg PO BID 11/14/18 Empagliflozin [Jardiance] 25 mg PO DAILY 11/14/18 Escitalopram [Lexapro*] 10 mg PO DAILY 11/14/18 Fenofibrate [Tricor*] 145 mg PO DAILY 11/14/18 Lansoprazole 30 mg PO DAILY 11/14/18 Levothyroxine [Synthroid*] 125 mcg PO [id number] 11/14/18 Metformin HCl [Metformin ER Osmotic] 1,000 mg PO BID 11/14/18 Ascorbic Acid [Vitamin C] 1,000 mg PO DAILY 01/02/22 Calcium Carbonate/Vitamin D3 [Calcium 600 mg-Vit D3 10Mcg Tb] 1 each PO SEECOM 01/02/22 Cholecalciferol (Vitamin D3) [Vitamin D3] 100 mcg PO DAILY 01/02/22 Docusate Sodium [Stool Softener] 200 mg PO DAILY 01/02/22 Losartan/Hydrochlorothiazide [Losartan-Hctz 100-25 mg Tab] 0.5 each PO BID 01/02/22 Magnesium Oxide [Magnesium] 500 mg PO DAILY 01/02/22 Multivit-Min/FA/Lycopen/Lutein [Adults 50 Plus Multivitamin] 1 each PO DAILY 01/02/22 Potassium Citrate [Potassium] 99 mg PO DAILY 01/02/22 Vitamin E (Dl,Tocopheryl Acet) [Vitamin E] 450 mg PO DAILY 01/02/22 Donepezil HCl 10 mg PO BEDTIME 07/28/24 Insulin Degludec [Tresiba Flextouch U-100] 20 units SQ DAILY 07/28/24 Physician Discharge Instructions: 1. Please call and schedule a follow-up appointment with your PCP in 3-5 days - Please follow-up with your PCP for medication refills/adjustments 2. Continue Diabetic diet 3. No activity restrictions Return to the ED if symptoms worsen Followup: Trae Rodriguez MD [Primary Care Provider] -
[2024-07-30 11:05] VITALS: O2SAT 100
[2024-07-30 12:36] VITALS: BP 198/89; TEMP 97.7
--- NOTE | 2024-07-31 12:15 | EKG ---
Test Date: 2024-07-28 Test Time: 16:15:33 Gas Cutter: YECENIA MEASUREMENT RESULTS: Intervals: Rate: 64 OK: 202 QRSD: 86 QT: 426 QTc: 439 [place]son: P: 32 OK: 202 QRS: 78 T: 87 INTERPRETIVE STATEMENTS: Normal sinus rhythm Septal infarct, age undetermined Abnormal ECG Compared to ECG 01/19/2017 15:28:54 Myocardial infarct finding now present Electronically Signed On 07-31-24 12:09:25 CDT by Armando Wiley
== END 2024-07-30 14:55 | disposition home or self-care (01) | DRG 637 ==
LOC: ER 14:58 → ERHOLD 17:48 → 4TH 19:19
PROVIDERS: ADMIT Family Medicine; ATTEND Family Medicine
DX: E10.65 Type 1 diabetes mellitus with hyperglycemia (principal); G93.41 Metabolic encephalopathy; E87.1 Hypo-osmolality and hyponatremia; E03.9 Hypothyroidism, unspecified; E78.00 Pure hypercholesterolemia, unspecified; I10 Essential (primary) hypertension; G30.9 Alzheimer's disease, unspecified; F02.80 Dementia in other diseases classified elsewhere, unspecified severity, without behavioral disturbance, psychotic disturbance, mood disturbance, and anxiety; Z88.0 Allergy status to penicillin; Z88.5 Allergy status to narcotic agent; Z79.4 Long term (current) use of insulin; Z88.1 Allergy status to other antibiotic agents; Z79.82 Long term (current) use of aspirin; Z79.84 Long term (current) use of oral hypoglycemic drugs; Z79.890 Hormone replacement therapy; Z79.899 Other long term (current) drug therapy; Z91.148 Patient's other noncompliance with medication regimen for other reason
CPT/HCPCS: 36415; 70450; 71045; 80048; 80053; 80076; 81003; 82947; 83690; 83735; 83880; 84439; 84443; 84484; 85025; 85610; 87040; 93005; 96372; 99285; J0360; J1815; J7030